=== PATIENT | female | born 1955 | race Caucasian/White ===

== ENCOUNTER 2016-05-17 10:11 | Emergency (ER) | payer OTHER, MEDICARE | END 2016-05-17 11:15 | disposition left against medical advice (07) | LOC: UCCORT 10:11 | DX: M54.9 Dorsalgia, unspecified (principal); R05 Cough; Z53.21 Procedure and treatment not carried out due to patient leaving prior to being seen by health care provider ==

== ENCOUNTER 2016-05-17 12:48 | Emergency (ER) | payer OTHER, MEDICARE ==
--- NOTE | 2016-05-17 13:48 | ED ---
Respiratory - HPI Summary HPI Summary: She has had a cough for about 4 days. she has been on antibiotics and prednisone for two days. the cough has improved. no risk factors for PE. she denies sob or calf symptoms of any kind. she presents mainly because of this new pain in the right flank. No urinary symptoms. - History of Current Complaint Chief Complaint: UCRespiratory Stated Complaint: BACK PAIN,COUGH Time Seen by Provider: 05/17/16 13:23 Hx Obtained From: Patient Onset/Duration: Sudden Onset Timing: Constant Initial Severity: Moderate Current Severity: Moderate Character: Cough (Nonproductive) Sputum Amount: Scant Aggravating Factor(s): Deep Breaths - Allergy/Home Medications Allergies/Adverse Reactions: Allergies Allergy/AdvReac Type Severity Reaction Status Date / Time Citalopram [From Celexa] Allergy Severe Anaphylatic Verified 05/17/16 13:19 Shock Moxifloxacin [From Avelox] Allergy Severe Anaphylatic Verified 05/17/16 13:19 Shock Home Medications: Home Medications Beclomethasone Dipropionate [Qvar] 2 puff INH QPM 05/17/16 [History Confirmed ] Fluticasone NASAL SPRAY 50MCG* [Flonase NASAL SPRAY 50MCG*] 1 spray BOTH NARES BID 05/17/16 [History Confirmed 05/17/16] predniSONE TAB* [Deltasone TAB*] 40 mg PO SEE INSTRUCTIONS 05/17/16 [History Confirmed 05/17/16] PMH/Surg Hx/FS Hx/Imm Hx Endocrine/Hematology History: Denies: Hx Diabetes, Hx Systemic Lupus Erythematosus, Hx Thyroid Disease Cardiovascular History: Denies: Hx Congestive Heart Failure, Hx Deep Vein Thrombosis, Hx Hypertension , Hx Myocardial Infarction, Hx Pacemaker/ICD Respiratory History: Reports: Hx Asthma, Hx Chronic Obstructive Pulmonary Disease (COPD) Denies: Hx Lung Cancer, Hx Pneumonia, Hx Pulmonary Embolism GI History: Denies: Hx Gall Bladder Disease, Hx Gastrointestinal Bleed, Hx Ulcer, Hx Urosepsis History: Denies: Hx Kidney Stones, Hx Renal Disease Musculoskeletal History: Denies: Hx Rheumatoid Arthritis Neurological History: Denies: Hx Dementia, Hx Migraine, Hx Seizures, Hx Transient Ischemic Attacks (TIA) Psychiatric History: Reports: Hx Anxiety Denies: Hx Depression, Hx Schizophrenia, Hx Bipolar Disorder - Cancer History Cancer Type, Location and Year: skin - Surgical History Surgery Procedure, Year, and Place: skin cancer removed September 2012 Infectious Disease History: No Infectious Disease History: Denies: Hx Hepatitis, Hx Human Immunodeficiency Virus (HIV), Traveled Outside the [place] in Last 30 Days - Family History Known Family History: Positive: Respiratory Disease Negative: Cardiac Disease, Hypertension, Renal Disease - Social History Alcohol Use: None Substance Use Type: Reports: None Smoking Status (MU): Light Every Day Tobacco Smoker Type: Cigarettes Amount Used/How Often: 6 cigarettes daily Length of Time of Smoking/Using Tobacco: 41 Years Have You Smoked in the Last Year: Yes Review of Systems All Other Systems Reviewed And Are Negative: Yes Physical Exam Triage Information Reviewed: Yes Vital Signs On Initial Exam: Initial Vitals Temp Pulse Resp BP Pulse Ox 98.2 F 106 24 112/50 96 05/17/16 13:10 05/17/16 13:10 05/17/16 13:10 05/17/16 13:10 05/17/16 13:10 Vital Signs Reviewed: Yes Appearance: Positive: Well-Appearing, No Pain Distress, Well-Nourished. Negative: Ill-Appearing, Pain Distress Skin: Positive: Warm Head/Face: Positive: Normal Head/Face Inspection Eyes: Positive: Normal ENT: Positive: Normal ENT inspection, Hearing grossly normal, Pharynx normal, TMs normal. Negative: Pharyngeal erythema, Nasal congestion, Nasal drainage, TM bulging, TM dull, TM red, Tonsillar swelling, Tonsillar exudate, Trismus, Muffled/hoarse voice Neck: Positive: Supple, Nontender, No Lymphadenopathy. Negative: Nuchal Rigidity, Tenderness @, Enlarged Nodes @ Respiratory/Lung Sounds: Positive: Clear to Auscultation, Breath Sounds Present , Decreased Breath Sounds. Negative: Rales, Rhonchi, Subcutaneous Emphysema, Stridor, Tracheal Deviation, Wheezes, Unable to speak in full sentences, Fatigue - she is breathing and talking comfortably but has obvious pain with deep inspiration. there is tenderness distinctly along the ribs of the right flank. no cvat. Cardiovascular: Positive: Normal, RRR, Pulses are Symmetrical in both Upper and Lower Extremities. Negative: Leg Edema Left, Leg Edema Right Abdomen Description: Positive: Nontender, No Organomegaly. Negative: Distended , Guarding Musculoskeletal: Positive: Normal, Strength/ROM Intact. Negative: Limited @, Pain @, Silvana Sign Left, Silvana Sign Right, Edema Left, Edema Right Neurological: Positive: Normal, Sensory/Motor Intact, Alert, Oriented to Person Place, Time Psychiatric: Positive: Normal Diagnostics - Vital Signs Vital Signs Temp Pulse Resp BP Pulse Ox 05/17/16 13:10 98.2 F 106 24 112/50 96 - Laboratory Lab Statement: Any lab studies that have been ordered have been reviewed, and results considered in the medical decision making process. Disposition - Course Course Of Treatment: PE is not likely given no risk factors except for mild smoking and there is no sob or tachycardia or signs of dvt. x ray clear of pneumothorax, pneumonia, pleural effusion. this is most c/w pleurisy or costochondritis. f/u with pcp and return to ed for any worsening. - Diagnoses Provider Diagnoses: Costochondral pain Discharge - Discharge Plan Condition: Good Disposition: HOME Prescriptions: traMADol TAB* [Ultram*] 50 mg PO Q12H PRN #12 tab MDD 2 PRN Reason: Pain Patient Education Materials: Chest Wall Pain (ED) Referrals: Rayo Power DO [Primary Care Provider] - 3 Days
[2016-05-17] MEDS ORDERED: Ketorolac INJ* 30 MG/ML 1 ML VIAL IV PUSH ONE (13:57)
--- NOTE | 2016-05-17 13:59 | RAD ---
Indication: Cough with chest pain. 2 views of the chest including dual energy PA views demonstrates no mediastinal shift. Heart is of normal size and configuration. Hyperinflated lung mcconnell are noted. No pneumonia, pleural fluid or pneumothorax is noted. No changes noted since February 03, 2015. IMPRESSION: No active cardiopulmonary disease is noted.
[2016-05-17] MEDS ORDERED: Ketorolac INJ* 30 MG/ML 1 ML VIAL IM ONE (14:01)
[2016-05-17 14:28] VITALS: BP 117/65
== END 2016-05-17 14:31 | disposition home or self-care (01) ==
LOC: UCCORT 12:48
DX: R07.1 Chest pain on breathing (principal); Z88.1 Allergy status to other antibiotic agents; Z88.8 Allergy status to other drugs, medicaments and biological substances; F17.210 Nicotine dependence, cigarettes, uncomplicated
CPT/HCPCS: 71020; 96372; 99212; G0463; J1885

== ENCOUNTER 2016-08-03 08:28 | Emergency (ER) | payer OTHER, MEDICARE ==
[2016-08-03 08:40] VITALS: BP 113/45
--- NOTE | 2016-08-03 09:13 | UC ---
Respiratory Complaint HPI - HPI Summary HPI Summary: c/o sinus congestion, wheezing at night, occasional productive cough with yellow secretions that started 2 weeks ago. Has an appt with PCP on . No fevers, + right cheek pressure. + h/o COPD and uses steroid inhaleer and qvar daily. last alb neb was 2 nights ago. - History of Current Complaint Chief Complaint: UCRespiratory Stated Complaint: COUGH,SINUSES Time Seen by Provider: 08/03/16 08:36 Hx Last Menstrual Period: n/a - Allergies/Home Medications Allergies/Adverse Reactions: Allergies Allergy/AdvReac Type Severity Reaction Status Date / Time Citalopram [From Celexa] Allergy Severe Anaphylatic Verified 08/03/16 08:33 Shock Moxifloxacin [From Avelox] Allergy Severe Anaphylatic Verified 08/03/16 08:33 Shock PMH/Surg Hx/FS Hx/Imm Hx Previously Healthy: Yes Endocrine History Of: Denies: Diabetes, Thyroid Disease, Hyperthyroidism, Hypothyroidism, Dyslipidemia Cardiovascular History Of: Denies: Cardiac Disorders, Hypertension, Pacemaker/ICD, Myocardial Infarction , Congestive Heart Failure, Atrial Fibrillation, Deep Vein Thrombosis, Bleeding Disorders Respiratory History Of: Reports: COPD, Asthma, Bronchitis Denies: Pneumonia, Pulmonary Embolism GI/ History Of: Denies: Gastroesophageal Reflux, Ulcer, Gastrointestinal Bleed, Gall Bladder Disease, Kidney Stones, Diverticulitis, Renal Disease, Urosepsis Neurological History Of: Denies: TIA, CVA, Dementia, Seizures, Migraine Psychological History Of: Reports: Anxiety Denies: Depression, Bipolar Disorder, Schizophrenia, Post Traumatic Stress Disorder Cancer History Of: Denies: Lung Cancer, Colorectal Cancer, Breast Cancer, Prostate Cancer, Cervical Cancer Other History Of: Negative For: HIV, Hepatitis B, Hepatitis C - Surgical History Surgical History: Yes Surgery Procedure, Year, and Place: skin cancer removed September 2012 - Family History Known Family History: Positive: Respiratory Disease Negative: Cardiac Disease, Hypertension, Renal Disease - Social History Alcohol Use: None Substance Use Type: None Smoking Status (MU): Heavy Every Day Tobacco Smoker Type: Cigarettes Amount Used/How Often: 10-20 cigarettes daily Length of Time of Smoking/Using Tobacco: 41 Years Have You Smoked in the Last Year: Yes When Did the Patient Quit Smoking/Using Tobacco: quit on may Household Exposure Type: Cigarettes - Immunization History Most Recent Influenza Vaccination: 4226-8153 Review of Systems Constitutional: Fatigue Skin: Negative Eyes: Negative ENT: Sore Throat, Nasal Discharge Respiratory: Cough Cardiovascular: Negative Gastrointestinal: Negative Genitourinary: Negative Motor: Negative Neurovascular: Negative Musculoskeletal: Negative Neurological: Negative Psychological: Negative All Other Systems Reviewed And Are Negative: Yes Physical Exam Triage Information Reviewed: Yes Appearance: Well-Appearing, No Pain Distress, Well-Nourished Vital Signs: Initial Vital Signs Temp 98.4 F 08/03/16 08:36 Pulse 92 08/03/16 08:36 Resp 18 08/03/16 08:36 BP 113/45 08/03/16 08:36 Pulse Ox 95 08/03/16 08:36 Eye Exam: Normal ENT: Positive: Pharyngeal erythema - no exudate, + PND, no swelling., TMs normal. Negative: Tonsillar swelling, Tonsillar exudate, Muffled/hoarse voice Dental Exam: Normal Neck exam: Normal Neck: Positive: Supple, Nontender, No Lymphadenopathy Respiratory: Positive: Chest non-tender, No respiratory distress, No accessory muscle use, Decreased breath sounds. Negative: Crackles, Rhonchi, Stridor, Wheezing Cardiovascular Exam: Normal Cardiovascular: Positive: RRR, No Murmur, Pulses Normal Abdomen Description: Positive: Nontender, Soft Musculoskeletal Exam: Normal Neurological Exam: Normal Psychological Exam: Normal Skin Exam: Normal UC Diagnostic Evaluation - Laboratory O2 Sat by Pulse Oximetry: 95 Respiratory Course/Dx - Course Course Of Treatment: She states that she feels she needs prednisone. She gets a 40mg starting taper usually. We discusse risks of prednisone including but not limited to anxiety, agitation, insomnia, GI upset, elevated blood pressures and blood sugar readings, adrenal crisis and avascular necrosis of the hip. [place] to use the lowest dose possible to treat the sx if it is necessary at all. She feels that she needs it. She uses alb neb sporadically, last 2 days ago. I advised her to use the neb Q 4-6 hrs for the wheezing and it is better to use this than prednisone for wheezing. Adv stronlgy to stop smoking. - Differential Dx/Diagnosis Differential Diagnosis/HQI/PQRI: Bronchitis, Lower Resp Infection, Sinusitis Provider Diagnoses: Sinusitis, bronchitis, copd. Discharge - Discharge Plan Condition: Stable Disposition: HOME Prescriptions: Amoxicillin/Clavulanate TAB* [Augmentin TAB 875*] 875 mg PO BID #20 tab Methylprednisolone [Medrol Dosepak 4 MG*] 4 mg PO DAILY #1 wei Patient Education Materials: Acute Bronchitis (ED), Sinusitis (ED) Referrals: Rayo Power DO [Primary Care Provider] - 3 Days Additional Instructions: Make sure to take a probiotic daily while you are on antibiotics. Increase fluids and rest.
== END 2016-08-03 09:33 | disposition home or self-care (01) ==
LOC: UCCORT 08:28
DX: J32.9 Chronic sinusitis, unspecified (principal); J44.9 Chronic obstructive pulmonary disease, unspecified; J20.9 Acute bronchitis, unspecified; F41.9 Anxiety disorder, unspecified; Z87.891 Personal history of nicotine dependence
CPT/HCPCS: 99212; G0463

== ENCOUNTER 2016-12-07 13:29 | Emergency (ER) | payer OTHER, MEDICARE | END 2016-12-07 13:36 | disposition left against medical advice (07) | LOC: UCCORT 13:29 | DX: J34.9 Unspecified disorder of nose and nasal sinuses (principal); R05 Cough; R09.81 Nasal congestion; Z53.20 Procedure and treatment not carried out because of patient's decision for unspecified reasons ==

== ENCOUNTER 2016-12-13 13:12 | Emergency (ER) | payer OTHER, MEDICARE ==
[2016-12-13 14:35] VITALS: BP 113/60
--- NOTE | 2016-12-13 14:43 | UC ---
Respiratory Complaint HPI - HPI Summary HPI Summary: 61 YEAR FEMALE PRESENTS WITH COMPLAINS OF COUGH AND CHEST CONGESTION. - History of Current Complaint Chief Complaint: UCRespiratory Stated Complaint: COUGH,CHEST CONGESTION Time Seen by Provider: 12/13/16 14:41 Hx Obtained From: Patient Hx Last Menstrual Period: n/a Onset/Duration: Sudden Onset Timing: Constant Severity Initially: Moderate Severity Currently: Moderate - Allergies/Home Medications Allergies/Adverse Reactions: Allergies Allergy/AdvReac Type Severity Reaction Status Date / Time Citalopram [From Celexa] Allergy Severe Anaphylatic Verified 12/13/16 14:28 Shock Moxifloxacin [From Avelox] Allergy Severe Anaphylatic Verified 12/13/16 14:28 Shock Home Medications: Home Medications Albuterol/Ipratropium RESP(NF) [Combivent Respimat (NF)] 1 inh IN Q4H PRN [History Confirmed 12/13/16] Fluticasone/Vilanterol MDI(NF) [Breo Ellipta MDI 100/25(NF)] 1 puff INH DAILY [History Confirmed 12/13/16] Ibuprofen TAB* [Advil TAB*] 600 mg PO Q8H PRN 12/13/16 [History Confirmed ] predniSONE TAB* [Deltasone TAB*] 60 mg PO DAILY 12/13/16 [History Confirmed ] PMH/Surg Hx/FS Hx/Imm Hx Previously Healthy: Yes Other History Of: Negative For: HIV, Hepatitis B, Hepatitis C - Surgical History Surgical History: Yes Surgery Procedure, Year, and Place: skin cancer removed September 2012 - Family History Known Family History: Positive: Respiratory Disease Negative: Cardiac Disease, Hypertension, Renal Disease - Social History Alcohol Use: None Substance Use Type: None Smoking Status (MU): Former Smoker Type: Cigarettes Amount Used/How Often: 10-20 cigarettes daily Length of Time of Smoking/Using Tobacco: 41 Years Have You Smoked in the Last Year: Yes When Did the Patient Quit Smoking/Using Tobacco: quit October 2016 Household Exposure Type: Cigarettes - Immunization History Most Recent Influenza Vaccination: [id number] Review of Systems Constitutional: Negative Skin: Negative Eyes: Negative ENT: Sore Throat, Sinus Congestion, Sinus Pain/Tenderness Respiratory: Cough Cardiovascular: Negative Gastrointestinal: Negative Genitourinary: Negative Motor: Negative Neurovascular: Negative Musculoskeletal: Negative Neurological: Negative Psychological: Negative All Other Systems Reviewed And Are Negative: Yes Physical Exam Triage Information Reviewed: Yes Vital Signs: Initial Vital Signs Temp 36.9 C 12/13/16 14:30 Pulse 77 12/13/16 14:30 Resp 20 12/13/16 14:30 BP 113/60 12/13/16 14:30 Pulse Ox 96 12/13/16 14:30 Eye Exam: Normal ENT Exam: Normal Dental Exam: Normal Neck exam: Normal Neck: Positive: 1 Respiratory: Positive: Respiratory distress, Wheezing Cardiovascular Exam: Normal Abdominal Exam: Normal Musculoskeletal Exam: Normal Neurological Exam: Normal Psychological Exam: Normal Skin Exam: Normal UC Diagnostic Evaluation - Laboratory O2 Sat by Pulse Oximetry: 96 Respiratory Course/Dx - Differential Dx/Diagnosis Provider Diagnoses: COUGH. COPD EXACERBATION Discharge - Discharge Plan Condition: Stable Disposition: HOME Prescriptions: Amoxicillin/Clavulanate TAB* [Augmentin TAB 875*] 875 mg PO BID #20 tab guaiFENesin/CODIEN 100MG-10MG* [Robitussin AC 100Mg-10Mg*] 5 ml PO Q8H PRN #120 ml MDD 15 ml PRN Reason: Craving Patient Education Materials: COPD (Chronic Obstructive Pulmonary Disease) (ED) Referrals: Rayo Power DO [Primary Care Provider] -
== END 2016-12-13 15:00 | disposition home or self-care (01) ==
LOC: UCCORT 13:12
DX: J44.1 Chronic obstructive pulmonary disease with (acute) exacerbation (principal); R05 Cough; Z88.8 Allergy status to other drugs, medicaments and biological substances; Z87.891 Personal history of nicotine dependence
CPT/HCPCS: 99212; G0463

== ENCOUNTER 2017-03-24 09:12 | Emergency (ER) | payer OTHER, MEDICARE ==
[2017-03-24 10:08] VITALS: BP 121/75
--- NOTE | 2017-03-27 18:27 | UC ---
Throat Pain/Nasal Zackary HPI - HPI Summary HPI Summary: 61 year old female presents with complains of sinus congestion and cough. - History of Current Complaint Chief Complaint: UCRespiratory Stated Complaint: UPPER RESP,ACHES,FEVER Time Seen by Provider: 03/24/17 09:47 Hx Obtained From: Patient Hx Last Menstrual Period: n/a Onset/Duration: Sudden Onset Pain Intensity: 7 Pain Scale Used: 0-10 Numeric Cough: Nonproductive Associated Signs & Symptoms: Positive: Dysphagia - Allergies/Home Medications Allergies/Adverse Reactions: Allergies Allergy/AdvReac Type Severity Reaction Status Date / Time Citalopram [From Celexa] Allergy Severe Anaphylatic Verified 03/24/17 10:08 Shock Moxifloxacin [From Avelox] Allergy Severe Anaphylatic Verified 03/24/17 10:08 Shock Home Medications: Home Medications Acetaminophen [Acetaminophen Extra Stren] 1,000 mg PO PRN 03/24/17 [History] Amoxicillin/Clavulanate TAB* [Augmentin TAB 875*] 875 mg PO BID 03/24/17 [ History Confirmed 03/24/17] Tiotropium CAP.INH* [Spiriva CAP.INH*] 1 cap.inh INH DAILY 03/24/17 [History Confirmed 03/24/17] PMH/Surg Hx/FS Hx/Imm Hx Previously Healthy: Yes Other History Of: Negative For: HIV, Hepatitis B, Hepatitis C - Surgical History Surgical History: Yes Surgery Procedure, Year, and Place: skin cancer removed September 2012. x1 - Family History Known Family History: Positive: Respiratory Disease Negative: Cardiac Disease, Hypertension, Renal Disease - Social History Alcohol Use: None Substance Use Type: None Smoking Status (MU): Former Smoker Type: Cigarettes Amount Used/How Often: 10-20 cigarettes daily Length of Time of Smoking/Using Tobacco: 41 Years Have You Smoked in the Last Year: Yes When Did the Patient Quit Smoking/Using Tobacco: quit October 2016 Household Exposure Type: Cigarettes - Immunization History Most Recent Influenza Vaccination: 11/2016 Review of Systems Constitutional: Negative Skin: Negative Eyes: Negative ENT: Sore Throat, Nasal Discharge, Sinus Congestion, Sinus Pain/Tenderness Respiratory: Negative Cardiovascular: Negative Gastrointestinal: Negative Genitourinary: Negative Motor: Negative Neurovascular: Negative Musculoskeletal: Negative Neurological: Negative Psychological: Negative All Other Systems Reviewed And Are Negative: Yes Physical Exam Triage Information Reviewed: Yes Vital Signs: Initial Vital Signs Temp 38.3 C 03/24/17 10:02 Pulse 99 03/24/17 10:02 Resp 16 03/24/17 10:02 BP 121/75 03/24/17 10:02 Pulse Ox 94 03/24/17 10:02 Vital Signs Reviewed: Yes Eye Exam: Normal ENT: Positive: Pharyngeal erythema, Nasal congestion, Nasal drainage, Sinus tenderness Dental Exam: Normal Neck exam: Normal Neck: Positive: 1 Respiratory Exam: Normal Cardiovascular Exam: Normal Abdominal Exam: Normal Musculoskeletal Exam: Normal Neurological Exam: Normal Psychological Exam: Normal Skin Exam: Normal Throat Pain/Nasal Course/Dx - Differential Dx/Diagnosis Provider Diagnoses: sinusitis Discharge - Discharge Plan Condition: Stable Disposition: HOME Prescriptions: Azithromyxin CALLIE (NF) [Z-Callie (Zithromax) 250 mg tabs #6] 2 tab PO .TODAY, THEN 1 DAILY #6 tab Guaifenesin-Codeine [Cheratussin AC] 1 teasp PO Q8H PRN #120 ml MDD 15 ml PRN Reason: Cough LoraTADine TAB(NF) [Claritin 10 MG TAB(NF)] 10 mg PO DAILY #30 tab predniSONE TAB* [Deltasone TAB*] 40 mg PO DAILY #10 tab Patient Education Materials: Sinusitis (ED) Referrals: Rayo Power DO [Primary Care Provider] -
== END 2017-03-24 10:39 | disposition home or self-care (01) ==
LOC: UCCORT 09:12
DX: J32.9 Chronic sinusitis, unspecified (principal); R05 Cough; J02.9 Acute pharyngitis, unspecified; Z87.891 Personal history of nicotine dependence
CPT/HCPCS: 87502; 99212; G0463

== ENCOUNTER 2017-03-28 10:23 | Emergency (ER) | payer OTHER, MEDICARE ==
[2017-03-28 12:34] VITALS: BP 128/68
[2017-03-28] MEDS ORDERED: Albuterol 2.5 MG/3 ML NEB.SOL* (0.083%) INH ONE (13:12)
[2017-03-28] MEDS ORDERED: Ipratropium 0.5MG/2.5ML NEB* 0.5 MG/2.5 ML NEB.SOLN INH ONE (13:13)
--- NOTE | 2017-03-28 13:22 | RAD ---
Indication: Cough, shortness of breath. 2 views of the chest including dual energy PA views demonstrate no mediastinal shift. Heart is of normal size and configuration. No pleural fluid, pneumonia or pneumothorax is identified. IMPRESSION: No active disease is noted. No changes noted since May 17, 2016.
--- NOTE | 2017-03-28 13:30 | UC ---
Respiratory Complaint HPI - HPI Summary HPI Summary: Pt c/o cough, chest congestion, wheezing, SOB with exertion. Pt was seen here on 03/25/17 and given z-pac, codeine cough syrup and prednisone. Pt states no improvement. Pt reports that only Doxycycline works for her. - History of Current Complaint Chief Complaint: UCRespiratory Stated Complaint: CONGESTION,HEADACHE Time Seen by Provider: 03/28/17 12:31 Hx Obtained From: Patient Hx Last Menstrual Period: n/a ?: No Onset/Duration: Gradual Onset, Lasting Days, Still Present, Worse Since - onset Timing: Constant Severity Initially: Mild Severity Currently: Moderate Character: Cough: Nonproductive Aggravating Factors: Exertion, Deep Breaths, Recumbent Position Alleviating Factors: Bronchodilator Associated Signs And Symptoms: Positive: Chills, URI, Nasal Congestion - Risk Factors Pulmonary Embolism Risk Factors: Smoking - recently quit Cardiac Risk Factors: Smoking Tuberculosis Risk Factors: Smoking - Allergies/Home Medications Allergies/Adverse Reactions: Allergies Allergy/AdvReac Type Severity Reaction Status Date / Time Citalopram [From Celexa] Allergy Severe Anaphylatic Verified 03/28/17 12:34 Shock Moxifloxacin [From Avelox] Allergy Severe Anaphylatic Verified 03/28/17 12:34 Shock PMH/Surg Hx/FS Hx/Imm Hx Previously Healthy: Yes Other History Of: Negative For: HIV, Hepatitis B, Hepatitis C - Surgical History Surgical History: Yes Surgery Procedure, Year, and Place: skin cancer removed September 2012. x1 - Family History Known Family History: Positive: Respiratory Disease Negative: Cardiac Disease, Hypertension, Renal Disease - Social History Occupation: Employed Full-time Lives: With Family Alcohol Use: None Substance Use Type: None Smoking Status (MU): Former Smoker Type: Cigarettes Amount Used/How Often: 10-20 cigarettes daily Length of Time of Smoking/Using Tobacco: 41 Years Have You Smoked in the Last Year: Yes When Did the Patient Quit Smoking/Using Tobacco: quit October 2016 Household Exposure Type: Cigarettes - Immunization History Most Recent Influenza Vaccination: 11/2016 Review of Systems Constitutional: Chills, Fatigue Skin: Negative Eyes: Negative ENT: Sinus Congestion, Other - nasal congestion Respiratory: Shortness Of Breath - with exertion, Cough Cardiovascular: Negative Gastrointestinal: Negative Genitourinary: Negative Motor: Negative Neurovascular: Negative Musculoskeletal: Negative Neurological: Negative Psychological: Negative Is Patient Immunocompromised?: No All Other Systems Reviewed And Are Negative: Yes Physical Exam Triage Information Reviewed: Yes Appearance: Ill-Appearing Vital Signs: Initial Vital Signs Temp 98.7 F 03/28/17 12:29 Pulse 75 03/28/17 12:29 Resp 18 03/28/17 12:29 BP 128/68 03/28/17 12:29 Pulse Ox 94 03/28/17 12:29 Vital Signs Reviewed: Yes Eye Exam: Normal ENT Exam: Other ENT: Positive: Nasal congestion Dental Exam: Normal Neck exam: Normal Respiratory Exam: Other Respiratory: Positive: Decreased breath sounds - bilateral bases Cardiovascular Exam: Normal Musculoskeletal Exam: Normal Neurological Exam: Normal Psychological Exam: Normal Skin Exam: Normal UC Diagnostic Evaluation - Laboratory O2 Sat by Pulse Oximetry: 94 Respiratory Course/Dx - Differential Dx/Diagnosis Differential Diagnosis/HQI/PQRI: Bronchitis, Exacerbation Of COPD, Pulmonary Embolism, Other - URI Provider Diagnoses: Bronchitis Discharge - Discharge Plan Condition: Stable Disposition: HOME Prescriptions: Benzonatate CAP* [Tessalon 100 MG CAP*] 100 mg PO Q8H PRN #21 cap PRN Reason: Cough DOXYcycline CAP(*) [DOXYcycline 100MG CAP(*)] 100 mg PO BID #20 cap Ipratropium 0.5MG/2.5ML NEB* [Atrovent 0.5 MG NEB.NICKY*] 0.5 mg INH Q6H PRN #1 box PRN Reason: Sob/Wheezing methylPREDNISolone TAB* [Medrol TAB*] 4 - 8 mg PO .SEE CALLIE #1 callie Patient Education Materials: Acute Bronchitis (ED) Referrals: No Primary Care Phys,NOPCP [Primary Care Provider] - If Needed Additional Instructions: Please follow up with your PCP or return to clinic as needed.
== END 2017-03-28 13:56 | disposition home or self-care (01) ==
LOC: UCCORT 10:23
DX: J40 Bronchitis, not specified as acute or chronic (principal); Z87.891 Personal history of nicotine dependence; Z88.3 Allergy status to other anti-infective agents; Z85.828 Personal history of other malignant neoplasm of skin
CPT/HCPCS: 71046; 99212; G0463; J7644

== ENCOUNTER 2017-06-09 14:07 | Emergency (ER) | payer OTHER, MEDICARE ==
[2017-06-09 15:03] VITALS: BP 138/54
--- NOTE | 2017-06-09 15:52 | UC ---
General HPI - HPI Summary HPI Summary: pt is c/o "pain in my chest between my boobs" for 2 months. she describes it as a pressure. she notes it is worse upon waking and improves throughout the day. she saw her pcp who tx her with IB x 2 weeks. she noted some relief from the IB initially but none now. she denies any heartburn/acid in throat. discomfort is not exertional. no sweating or nausea. no acute sob. pt wears cpap. she did f/u Dr Friend and the cpap pressure was reduced without change so now they are going to repeat a sleep study and prescribe bipap. pt stopped her cpap 5 days ago with no relief from the pressure. her last CT and CXR were 12/31 when she had pneumonia. denies hx cardiac disease and premature cad in family. no associated back pain. no pain/swelling to legs/calfs. no hx DVT. - History of Current Complaint Hx Last Menstrual Period: n/a Timing: Constant Pain Intensity: 7 Associated Signs & Symptoms: Positive: Chest Pain. Negative: Diaphoresis, Edema , Fever, Palpitations, SOB <Alyse Yip - Last Filed: 06/09/17 16:39> <Cristiane Palacios - Last Filed: 06/09/17 17:10> - History of Current Complaint Chief Complaint: UCRespiratory Stated Complaint: CHEST CONGESTION Time Seen by Provider: 06/09/17 15:02 - Allergy/Home Medications Allergies/Adverse Reactions: Allergies Allergy/AdvReac Type Severity Reaction Status Date / Time ceftriaxone [From Rocephin] Allergy Severe Abdominal Verified 06/09/17 15:07 Pain citalopram [From Celexa] Allergy Severe Anaphylatic Verified 06/09/17 15:06 Shock Iodinated Contrast- Oral and Allergy Severe Anaphylatic Verified 06/09/17 15:07 IV Dye Shock moxifloxacin [From Avelox] Allergy Severe Anaphylatic Verified 06/09/17 15:08 Shock Home Medications: Home Medications Fluticasone/Vilanterol [Breo Ellipta 200-25 Mcg INH] 1 each IH 06/09/17 [History ] PMH/Surg Hx/FS Hx/Imm Hx - Additional Past Medical History Additional PMH: LUIS Endocrine History: Dyslipidemia - tx diet Respiratory History: COPD, Pneumonia Other History Of: Negative For: HIV, Hepatitis B, Hepatitis C - Surgical History Surgical History: Yes Surgery Procedure, Year, and Place: skin cancer removed September 2012. x1 - Family History Known Family History: Positive: Respiratory Disease Negative: Cardiac Disease, Hypertension, Renal Disease - Social History Alcohol Use: None Substance Use Type: None Smoking Status (MU): Former Smoker Type: Cigarettes Amount Used/How Often: 10-20 cigarettes daily Length of Time of Smoking/Using Tobacco: 41 Years Have You Smoked in the Last Year: Yes When Did the Patient Quit Smoking/Using Tobacco: quit October 2016 Household Exposure Type: Cigarettes - Immunization History Most Recent Influenza Vaccination: 11/2016 <Alyse Yip - Last Filed: 06/09/17 16:39> Review of Systems Constitutional: Negative Skin: Negative Eyes: Negative ENT: Negative Respiratory: Negative Cardiovascular: Chest Pain Gastrointestinal: Negative Genitourinary: Negative Motor: Negative Neurovascular: Negative Musculoskeletal: Negative Neurological: Negative Psychological: Negative Is Patient Immunocompromised?: No All Other Systems Reviewed And Are Negative: Yes <Alyse Yip - Last Filed: 06/09/17 16:39> Physical Exam Triage Information Reviewed: Yes Appearance: Well-Appearing Vital Signs: Initial Vital Signs Temp 97.0 F 06/09/17 14:56 Pulse 88 06/09/17 14:56 Resp 20 06/09/17 14:56 BP 138/54 06/09/17 14:56 Pulse Ox 97 06/09/17 14:56 Vital Signs Reviewed: Yes Eye Exam: Normal ENT: Positive: Normal ENT inspection Neck: Positive: Supple, Nontender, No Lymphadenopathy Respiratory: Positive: Lungs clear, No respiratory distress, No accessory muscle use, Decreased breath sounds, Other: - Tender over central anterior chest but crepitation or instability. Cardiovascular: Positive: RRR, No Murmur, Pulses Normal - radial are equal and strong, Other: - no pedal edema, cords or calf tenderness. Abdomen Description: Positive: Nontender, No Organomegaly, Soft Bowel Sounds: Positive: Present Musculoskeletal: Positive: No Edema Neurological: Positive: Alert Psychological: Positive: Age Appropriate Behavior Skin Exam: Normal <Alyse Yip - Last Filed: 06/09/17 16:39> Vital Signs: Initial Vital Signs Temp 97.0 F 06/09/17 14:56 Pulse 88 06/09/17 14:56 Resp 20 06/09/17 14:56 BP 138/54 06/09/17 14:56 Pulse Ox 97 06/09/17 14:56 <Cristiane Palacios - Last Filed: 06/09/17 17:10> Diagnostics - Radiology No standard instances Xray Interpretation: No Acute Changes Radiology Interpretation Completed By: Radiologist - EKG Cardiac Rate: NL Cardiac Rhythm: Sinus: Normal Ectopy: PVCs - occasional ST Segment: Normal <YipAlyse hendrickson - Last Filed: 06/09/17 16:39> Course/Dx - Course Course Of Treatment: non toxic. not hypoxic or tachycardic and no calf pain/ swelling thus no concern for PE. ekg=unremarkable. not exertional, no diaphoresis and symptoms contant x 2 months thus acs unlikely. nothing to suggest aortic dissection. cxr=unremarkable. will tx with PPI to address possible reflux, baby aspirin daily and refer to cardiology to ensure additional cardiac pathology is excluded. - Differential Dx - Multi-Symptom Provider Diagnoses: CHEST PAIN=UNCERTAIN CAUSE <YipAlyse - Last Filed: 06/09/17 16:39> Discharge - Sign-Out/Discharge Documenting (check all that apply): Discharge - Billing Disposition and Condition Condition: STABLE Disposition: HOME <YipAlyse - Last Filed: 06/09/17 16:39> - Billing Disposition and Condition Condition: STABLE Disposition: HOME <Cristiane Palacios - Last Filed: 06/09/17 17:10> - Discharge Plan Condition: Stable Disposition: HOME Prescriptions: Omeprazole CAP* [Prilosec CAP* 20 MG] 20 mg PO DAILY #14 cap. Patient Education Materials: Chest Pain (ED) Referrals: Jameson RAMIREZ,Selvin Hallman [Medical Doctor] - [facility] [Provider Group] - 1 Day (OK TO REQUEST [place] OFFICE) Additional Instructions: YOU MAY CALL [facility](DR RIOS) OR [facility] TOMORROW FOR FOLLOW UP-TAKE THE NEXT AVAILABLE APPOINTMENT. GO TO THE ER FOR ANY WORSENING OR CHANGES. START A BABY ASPIRIN DAILY. Attestation Statement User Type: Provider - I was available for consult. This patient was seen by the advanced practice provider. The patient was not seen by or examined by me. We did discuss this patients history, risk factors. I reviewed VS, EKG and CXR. Recommend pt see cardiology as outpt - pt with ongoing, constant sx x 2 months. It sx change in tempo, intensity recommend immediately to ED or call EMS. Pt given referral info cardiology. -Jhonatan <Cristiane Palacios - Last Filed: 06/09/17 17:10>
--- NOTE | 2017-06-09 16:16 | RAD ---
INDICATION: Central chest pain for 2 months. History of COPD. History of tobacco use. COMPARISON: March 28, 2017 TECHNIQUE: Dual energy PA and routine lateral views of the chest were obtained. REPORT: Elevated lung volumes and patchy rarefaction of the upper lung zone interstitial markings. No focal pulmonary lesion, compelling alveolar consolidation, pleural effusion, pneumothorax. The heart, pulmonary vasculature, and mediastinal contours are unremarkable. No suspicious osseous lesions evident. Thoracic degenerative spondylosis and degenerative arthropathy at the shoulders. IMPRESSION: Stigmata of obstructive lung disease. No acute pulmonary or cardiac process evident.
== END 2017-06-09 16:49 | disposition home or self-care (01) ==
LOC: UCCORT 14:07
DX: R07.9 Chest pain, unspecified (principal); Z88.8 Allergy status to other drugs, medicaments and biological substances; Z88.1 Allergy status to other antibiotic agents; Z91.041 Radiographic dye allergy status; Z87.891 Personal history of nicotine dependence
CPT/HCPCS: 71046; 93005; 99212; G0463

== ENCOUNTER 2017-07-28 18:09 | Emergency (ER) | payer OTHER, MEDICARE ==
[2017-07-28 20:20] VITALS: BP 123/58
--- NOTE | 2017-07-28 20:28 | UC ---
Throat Pain/Nasal Zackary HPI - HPI Summary HPI Summary: Pt with h/o COPD on symbicort, spirivia and albuterol No oxygen, oral steroid. Pt with 5 days of cough with yellow sputum, fatigue, tactile temp. little relief with meds. No cp, sob. Pt recently dx with bronchitis Pt's medications reviewed this visit - History of Current Complaint Chief Complaint: UCGeneralIllness Stated Complaint: COUGH, CONGESTION Time Seen by Provider: 07/28/17 20:27 Hx Obtained From: Patient Hx Last Menstrual Period: n/a Onset/Duration: Gradual Onset, Lasting Days Pain Intensity: 0 Cough: Nonproductive Associated Signs & Symptoms: Positive: Wheezing, Nasal Discharge - Allergies/Home Medications Allergies/Adverse Reactions: Allergies Allergy/AdvReac Type Severity Reaction Status Date / Time ceftriaxone [From Rocephin] Allergy Severe Abdominal Verified 07/28/17 20:20 Pain citalopram [From Celexa] Allergy Severe Anaphylatic Verified 07/28/17 20:20 Shock Iodinated Contrast- Oral and Allergy Severe Anaphylatic Verified 07/28/17 20:20 IV Dye Shock moxifloxacin [From Avelox] Allergy Severe Anaphylatic Verified 07/28/17 20:20 Shock Home Medications: Home Medications Albuterol HFA INHALER* [Ventolin HFA Inhaler*] 2 puff INH Q4H PRN 07/28/17 [ History Confirmed 07/28/17] Budesonide/Formote 160/4.5(NF) [Symbicort 160/4.5 (NF)] 2 puff INH BID 07/28/17 [History Confirmed 07/28/17] Fluticasone NASAL SPRAY 50MCG* [Flonase NASAL SPRAY 50MCG*] 1 spray BID [History Confirmed 07/28/17] Montelukast Sodium TAB* [Singulair TAB*] 10 mg PO BEDTIME 07/28/17 [History Confirmed 07/28/17] Roflumilast (NF) [Daliresp (NF)] 500 mcg PO DAILY 07/28/17 [History Confirmed ] PMH/Surg Hx/FS Hx/Imm Hx Previously Healthy: Yes Respiratory History: COPD, Bronchitis Other History Of: Negative For: HIV, Hepatitis B, Hepatitis C - Surgical History Surgical History: Yes Surgery Procedure, Year, and Place: skin cancer removed September 2012. x1 - Family History Known Family History: Positive: Respiratory Disease Negative: Cardiac Disease, Hypertension, Renal Disease - Social History Occupation: Unemployed Lives: With Family Alcohol Use: None Substance Use Type: None Smoking Status (MU): Former Smoker Type: Cigarettes Amount Used/How Often: 10-20 cigarettes daily Length of Time of Smoking/Using Tobacco: 41 Years Have You Smoked in the Last Year: Yes When Did the Patient Quit Smoking/Using Tobacco: quit October 2016 Household Exposure Type: Cigarettes - Immunization History Most Recent Influenza Vaccination: 11/2016 Review of Systems Constitutional: Fatigue ENT: Sinus Congestion Respiratory: Shortness Of Breath, Cough All Other Systems Reviewed And Are Negative: Yes Physical Exam Triage Information Reviewed: Yes Appearance: Well-Appearing, No Pain Distress, Well-Nourished Vital Signs: Initial Vital Signs Temp 98.7 F 07/28/17 20:15 Pulse 102 07/28/17 20:15 Resp 20 07/28/17 20:15 BP 123/58 07/28/17 20:15 Pulse Ox 95 07/28/17 20:15 Vital Signs Reviewed: Yes Eye Exam: Normal Eyes: Positive: Conjunctiva Clear ENT Exam: Normal ENT: Positive: Hearing grossly normal, Pharynx normal, TMs normal Neck exam: Normal Neck: Positive: Supple, Nontender Respiratory: Positive: Chest non-tender, No respiratory distress, No accessory muscle use, Wheezing Cardiovascular Exam: Normal Cardiovascular: Positive: RRR, No Murmur Abdominal Exam: Normal Abdomen Description: Positive: Nontender, No Organomegaly Bowel Sounds: Positive: Present Musculoskeletal Exam: Normal Neurological Exam: Normal Neurological: Positive: Alert Psychological Exam: Normal Skin Exam: Normal Re-Evaluation - Re-Evaluation First Eval Change: Improved - lung sounds improved following neb will rx prednisne, doxy pt for recheck this week strict return precaution Throat Pain/Nasal Course/Dx - Course Course Of Treatment: Pt witih progressive cough, wheeze and congestion. Pt sick contact. Pt with h/o copd. will give neb. pt refusing cxr - states had one last month. will reasses. secrtion precaution - Differential Dx/Diagnosis Provider Diagnoses: acute bronchitis Discharge - Sign-Out/Discharge Documenting (check all that apply): Discharge/Admit/Transfer - Discharge Plan Condition: Stable Disposition: HOME Prescriptions: DOXYcycline CAP(*) [DOXYcycline 100MG CAP(*)] 100 mg PO BID #14 cap predniSONE TAB* [Deltasone TAB*] 50 mg PO DAILY #4 tab Patient Education Materials: Acute Bronchitis (ED) Referrals: Donald Power [Primary Care Provider] - Additional Instructions: - Take antibiotics exactly as prescribed until gone -Use your albutero nebulize every 4 hours for the next 2 days - then as needed - take prednisone once daily as prescribed. It is recommended you hold your pulmicort and symbicort while taking Prednisone These infections are spread by oral secretions. Do not share eating or drinking utensils. Frequent hand washing is important. Clean items that may get your secretions on them such as cell phones, ipads, computer mouse, television remotes. Once you have been on antbiotics for 2 days, change your pillowcase and your toothbrush -Stay well hydrated - avoid excess caffeine and all alcohol - eat regular, healthy meals --Contact your doctor to arrange a follow-up appointment next week. Call your doctor, return here or go to the emergency department with any questions or concerns - Billing Disposition and Condition Condition: STABLE Disposition: HOME
[2017-07-28] MEDS ORDERED: Albuterol/Ipratropium NEB.SOL* Albuterol 2.5 MG/Ipratropium 0.5 MG 3 ML INH ONE (20:35)
[2017-07-28] MEDS ORDERED: DOXYcycline CAP(*) 100 MG PO ONE (21:04)
[2017-07-28] MEDS ORDERED: predniSONE TAB* 20 MG PO ONE (21:04)
== END 2017-07-28 21:24 | disposition home or self-care (01) ==
LOC: UCCORT 18:09
DX: R05 Cough (principal); R09.81 Nasal congestion; Z87.891 Personal history of nicotine dependence; Z85.828 Personal history of other malignant neoplasm of skin
CPT/HCPCS: 99213; A9270-GY; G0463; J7512

== ENCOUNTER 2017-08-01 14:28 | Emergency (ER) | payer OTHER, MEDICARE ==
[2017-08-01 15:41] VITALS: BP 132/62
--- NOTE | 2017-08-01 16:03 | ED ---
Respiratory - HPI Summary HPI Summary: 61 yr old female with the complaint of cough, sob, and pain in the left posterior chest. The patient has been ill for about four days. Was seen here in , put on doxy, steroids and nebs, and states she has gotten worse this week. Denies fever. She states she is very SOB with doing minimal activity. Pain in left posterior chest worse with coughing. - History of Current Complaint Chief Complaint: UCRespiratory Stated Complaint: RE-CHECK BRONCHITIS Time Seen by Provider: 08/01/17 15:48 Pain Intensity: 5 - Allergy/Home Medications Allergies/Adverse Reactions: Allergies Allergy/AdvReac Type Severity Reaction Status Date / Time citalopram [From Celexa] Allergy Severe Anaphylatic Verified 08/01/17 15:41 Shock Iodinated Contrast- Oral and Allergy Severe Anaphylatic Verified 08/01/17 15:41 IV Dye Shock moxifloxacin [From Avelox] Allergy Severe Anaphylatic Verified 08/01/17 15:41 Shock ceftriaxone [From Rocephin] AdvReac Severe Abdominal Verified 08/01/17 15:41 Pain PMH/Surg Hx/FS Hx/Imm Hx Endocrine/Hematology History: Denies: Hx Diabetes, Hx Systemic Lupus Erythematosus, Hx Thyroid Disease Cardiovascular History: Denies: Hx Congestive Heart Failure, Hx Deep Vein Thrombosis, Hx Hypertension , Hx Myocardial Infarction, Hx Pacemaker/ICD Respiratory History: Reports: Hx Asthma, Hx Chronic Obstructive Pulmonary Disease (COPD) Denies: Hx Lung Cancer, Hx Pneumonia, Hx Pulmonary Embolism GI History: Denies: Hx Gall Bladder Disease, Hx Gastrointestinal Bleed, Hx Ulcer, Hx Urosepsis History: Denies: Hx Kidney Stones, Hx Renal Disease Musculoskeletal History: Denies: Hx Rheumatoid Arthritis Neurological History: Denies: Hx Dementia, Hx Migraine, Hx Seizures, Hx Transient Ischemic Attacks (TIA) Psychiatric History: Reports: Hx Anxiety Denies: Hx Depression, Hx Schizophrenia, Hx Bipolar Disorder - Cancer History Cancer Type, Location and Year: skin - Surgical History Surgery Procedure, Year, and Place: skin cancer removed September 2012. x1 Infectious Disease History: No Infectious Disease History: Denies: Hx Hepatitis, Hx Human Immunodeficiency Virus (HIV), Traveled Outside the [place] in Last 30 Days - Family History Known Family History: Positive: Respiratory Disease Negative: Cardiac Disease, Hypertension, Renal Disease - Social History Alcohol Use: None Substance Use Type: Reports: None Smoking Status (MU): Former Smoker Type: Cigarettes Amount Used/How Often: 10-20 cigarettes daily Length of Time of Smoking/Using Tobacco: 41 Years Have You Smoked in the Last Year: Yes Review of Systems Constitutional: Negative Positive: Shortness Of Breath, Cough All Other Systems Reviewed And Are Negative: Yes Physical Exam Triage Information Reviewed: Yes Vital Signs On Initial Exam: Initial Vitals Temp Pulse Resp BP Pulse Ox 97.8 F 81 20 132/62 93 08/01/17 15:29 08/01/17 15:29 08/01/17 15:29 08/01/17 15:29 08/01/17 15:29 Vital Signs Reviewed: Yes Appearance: Positive: Well-Appearing, No Pain Distress Skin: Positive: Warm, Skin Color Reflects Adequate Perfusion Head/Face: Positive: Normal Head/Face Inspection Eyes: Positive: EOMI Neck: Positive: Supple, Nontender Respiratory/Lung Sounds: Positive: Clear to Auscultation, Breath Sounds Present Cardiovascular: Positive: RRR. Negative: Murmur Abdomen Description: Positive: Nontender Musculoskeletal: Positive: Strength/ROM Intact. Negative: Edema Left, Edema Right Neurological: Positive: Sensory/Motor Intact, Alert, Oriented to Person Place, Time, CN Intact II-III Psychiatric: Positive: Normal - [place] Coma Scale Best Eye Response: 4 - Spontaneous Best Motor Response: 6 - Obeys Commands Best Verbal Response: 5 - Oriented Coma Scale Total: 15 Diagnostics - Vital Signs Vital Signs Temp Pulse Resp BP Pulse Ox 08/01/17 15:29 97.8 F 81 20 132/62 93 - Laboratory Lab Statement: Any lab studies that have been ordered have been reviewed, and results considered in the medical decision making process. - Radiology chest xrays Xray Interpretation: Positive (See Comments) - hyperinflation Radiology Interpretation Completed By: Radiologist Disposition - Course Course Of Treatment: 61 yr old with posterior left chest pain, and SOB with no acute finding on chest xray. She feels she is much shorter of breath than usual and really not feeling well. She verbalized that she did not want to go to the hospital for further work up and wanted to see her PMD on Friday. I informed her she could have a PE, and that ambulance transport to ER for work up was necessary. She signed out AMA. She may go to [facility] on her own for further eval. - Diagnoses Provider Diagnoses: Shortness of breath, Pleuritic pain Discharge - Sign-Out/Discharge Documenting (check all that apply): Discharge/Admit/Transfer - Discharge Plan Condition: Stable Disposition: AGAINST MEDICAL ADVICE Referrals: Donald Power [Primary Care Provider] - - Billing Disposition and Condition Condition: STABLE Disposition: [facility]
--- NOTE | 2017-08-01 16:43 | RAD ---
INDICATION: Short of breath COMPARISON: June 09, 2017 TECHNIQUE: PA and lateral dual-energy views were obtained. FINDINGS: Bones/Soft Tissues: There are no acute bony findings. Cardiomediastinal: The cardiomediastinal silhouette is normal. Lungs: There are no infiltrates. There is hyperinflation. Pleura: There are no pleural effusions. Other: None IMPRESSION: HYPERINFLATION. NO FOCAL INFILTRATES.
== END 2017-08-01 17:06 | disposition left against medical advice (07) ==
LOC: UCCORT 14:28
DX: R06.02 Shortness of breath (principal); R07.81 Pleurodynia; R09.89 Other specified symptoms and signs involving the circulatory and respiratory systems; Z53.21 Procedure and treatment not carried out due to patient leaving prior to being seen by health care provider; Z87.891 Personal history of nicotine dependence; Z88.3 Allergy status to other anti-infective agents; Z91.041 Radiographic dye allergy status
CPT/HCPCS: 71046; 99212; G0463

== ENCOUNTER 2018-03-15 15:42 | Emergency (ER) | payer OTHER, MEDICARE ==
--- OUTSIDE RECORDS SUMMARY | 2018-03-15 16:29 | XMS REPORT ---
:1955 External Reference #:[id number] Author Organization [facility] Address [address], [address] [place] [address] Phone [phone] Care Team Providers Name Role Phone Damari Frost M.D. 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 Jannet, Rayo Adams D.Rossy. Primary Care Physician Unavailable Payers Type Date Identification Numbers Payment Provider Subscriber Commercial Policy Number: [id number] [facility] Julio Silva PayID: [id number] [address] [place] [address] Medicare Primary Policy Number: [id number] Medicare Clara Silva PayID: [id number] [address] [address] [place] [address] Problems Description No Information Family History Date Family Member(s) Problem(s) Comments Father Colon Cancer Mother Intracranial hemorrhage Mother due to Emphysema () Mother Asthma First Sister Bladder Cancer Social History Type Date Description Comments Marital Status Lives With Occupation Disabled Cigarette Use Former Cigarette Smoker 1 1/2 Packs Daily 30 PLUS YEARS ETOH Use Denies alcohol use Smoking Patient is a former smoker Recreational Drug Use Never Used Drugs Daily Caffeine Consumes on average 5 cups of regular coffee per day Allergies, Adverse Reactions, Alerts Date Description Reaction Status Severity Comments 12/26/2016 Zosyn active 12/26/2016 Celexa active 12/26/2016 Avelox active 12/26/2016 Levaquin active 12/26/2016 Contrast Dye active Medications Medication Date Status Form Strength Qnty SIG Indications Ordering Provider Amitriptyline 09/18 Active Tablets 25mg 30tab 1 tab by Ele s mouth every MD Ambrosio day every night Daliresp 06/18 Active Tablets 500mcg 30tab 1 by mouth J44.9 Anju s every day MD Ambrosio Proair HFA 01/03 Active Aerosol 108(90Bas 25.5g take 2 e) m puffs every MD Ambrosio mcg/Act 6 hours as needed for shortness of breath. Spiriva 01/03 Active Aerosol 2.5mcg/Ac 4unit Take 2 J44.9 Anjueti, Respima t s Puffs Once MD Ambrosio Daily. Albuterol Active Nebulizer 1.25mg/3M 270ml 1 vial Kheti, Sulfate /0000 L inhaled MD Ambrosio every 4 hours as needed for shortness of breath and or wheezing Xanax Active Tablets 0.5mg tid prn Unknown /0000 anxiety prn Symbicort Active Aerosol 160-4.5mc 2 puff Unknown /0000 g/Act twice a day Physical 06/23 Hx Ele, MD Ambrosio Omeprazole 04/10 Hx Capsules 40mg 30cap take [address] s tablet MD Ambrosio daily. Cimetidine 01/13 Hx Tablets 200mg 60tab 1 p bid [facility] s Peterson Juarez M.D. Breo Ellipta Hx Aerosol 100-25mcg 1mont take 1 puff Kheti, /0000 /Inh h once daily. MD Ambrosio rinse mouth with water after use. Xanax Hx Tablets 0.25mg 1 tab by Unknown /0000 mouth twice - a day as 06/18 needed 0.5mg Albuterol Hx Nebulizer (2.5mg/3M nebulized Unknown Sulfate /0000 L) 0.083% every 4 hours as needed Combivent Hx Aerosol 20-100mcg 1 Unknown Respimat /0000 /Act inhalation - four times 01/03 a day /2016 Montelukast Hx Tablets 10mg take 1 Unknown Sodium /0000 tablet daily. Vital Signs Date Vital Result Comment 02/23/2018 BP Systolic Sitting Left Arm 138 mmHg BP Diastolic Sitting Left Arm 88 mmHg Heart Rate 91 /min Respiratory Rate 18 /min Height 63 inches 5'3" Weight 181.00 lb BMI (Body Mass Index) 32.1 kg/m2 BSA (Body Surface Area) 1.85 m2 [place] body weight in kilograms 52 O2 % BldC Oximetry 93 % 09/18/2017 BP Systolic Sitting Left Arm 120 mmHg BP Diastolic Sitting Left Arm 60 mmHg Heart Rate 90 /min Respiratory Rate 18 /min Height 63 inches 5'3" Weight 175.00 lb BMI (Body Mass Index) 31.0 kg/m2 BSA (Body Surface Area) 1.83 m2 [place] body weight in kilograms 52 O2 % BldC Oximetry 97 % 06/18/2017 BP Systolic Sitting Left Arm 126 mmHg BP Diastolic Sitting Left Arm 88 mmHg Heart Rate 83 /min Respiratory Rate 16 /min Height 63 inches 5'3" Weight 184.00 lb BMI (Body Mass Index) 32.6 kg/m2 BSA (Body Surface Area) 1.87 m2 [place] body weight in kilograms 52 O2 % BldC Oximetry 90 % Ora 03/06/2017 BP Systolic Sitting Left Arm 110 mmHg BP Diastolic Sitting Left Arm 70 mmHg Heart Rate 74 /min Respiratory Rate 18 /min Height 63 inches 5'3" Weight 176.00 lb BMI (Body Mass Index) 31.2 kg/m2 BSA (Body Surface Area) 1.83 m2 [place] body weight in kilograms 52 O2 % BldC Oximetry 95 % 01/23/2017 BP Systolic 115 mmHg BP Diastolic 71 mmHg Body Temperature 98.4 F Heart Rate 87 /min Respiratory Rate 16 /min Height 63 inches 5'3" Weight 173.50 lb BMI (Body Mass Index) 30.7 kg/m2 BSA (Body Surface Area) 1.82 m2 [place] body weight in kilograms 52 O2 % BldC Oximetry 93 % Pain Level 0 01/03/2017 BP Systolic Sitting Left Arm 102 mmHg BP Diastolic Sitting Left Arm 64 mmHg Heart Rate 71 /min Respiratory Rate 16 /min Height 63 inches 5'3" Weight 170.00 lb BMI (Body Mass Index) 30.1 kg/m2 BSA (Body Surface Area) 1.80 m2 [place] body weight in kilograms 52 O2 % BldC Oximetry 93 % Results Test Date Test Result H/L Range Note Unloinc 08/02/2017 Unloinc Room Air Unloinc Yes Arterial blood 08/02/2017 Arterial blood partial 64 Low 80-105 partial pressure of pressure of oxygen oxygen adjusted adjusted to patient's actualtemperature Arterial blood 08/02/2017 Arterial blood partial 38 35-45 partial pressure of pressure of carbon carbon dioxide dioxide with temperature correction Arterial blood pH 08/02/2017 Arterial blood pH 7.48 High 7.35-7.45 measurement with measurement with patient tempera patient temperature correction Arterial blood oxygen 08/02/2017 Arterial blood oxygen 93 90-99 saturation saturation measurement measurement Arterial blood gas 08/02/2017 Arterial blood gas [employer].Rad[employer]Art. measurement measurement Arterial blood 08/02/2017 Arterial blood 27 High 22-26 bicarbonate bicarbonate measurement measurement (moles/volume) (moles/volu Arterial blood base 08/02/2017 Arterial blood base 4 High -2-2 excess determination excess determination by by calcul calculation Prothrombin time (PT) 08/02/2017 Prothrombin time (PT) 13.3 12.0-14.4 in platelet poor in platelet poor plasma plasma Platelet poor plasma 08/02/2017 Platelet poor plasma 1.0 0.9-1.1 international international normalized rati normalized ratio (Inr) by coagulation assay (relative time) Activated partial 08/02/2017 Activated partial 45.5 High 23.4-35.0 thromboplastin time thromboplastin time (aPTT) in pl (aPTT) in platelet poor plasma by coagulation assay Unloinc 08/02/2017 Unloinc Sitting Up In Bed Determination of 08/02/2017 Determination of 21 21-100 inhaled oxygen inhaled oxygen concentration (vol concentration (volume fraction) Unloin 08/02/2017 Unloinc 2 Unloinc N/C Unloinc Ambulating Unloinc 18 Heart rate by oximetry 08/02/2017 Heart rate by oximetry 90 Arterial blood oxygen 08/02/2017 Arterial blood oxygen 92 Low 93-98 saturation measurement saturation measurement by pu by pulse oximetry Serum carbon dioxide 08/01/2017 Serum carbon dioxide 29 21-32 measurement measurement RDW RBC Auto 08/01/2017 RDW RBC Auto 43.7 3-47 Potassium SerPl-sCnc 08/01/2017 Potassium SerPl-sCnc 4.3 3.5-5.1 Neutrophils/leuk NFr 08/01/2017 Neutrophils/leuk NFr 80.4 High 40.4-72.8 Bld Auto Bld Auto Neutrophils # Bld Auto 08/01/2017 Neutrophils # Bld Auto 8.68 High 1.8- 7.0 Monocytes/leuk NFr Bld 08/01/2017 Monocytes/leuk NFr Bld 4.7 4.3-13.2 Auto Auto Manual blood variant 08/01/2017 Manual blood variant 5 0-7 lymphocytes as lymphocytes as percentage of percentage of leukocytes Manual blood segmented 08/01/2017 Manual blood segmented 83 High 33-73 neutrophils/100 neutrophils/100 leukocytes leukocytes Manual blood 08/01/2017 Manual blood 4 0-10 monocytes/100 monocytes/100 leukocytes leukocytes Manual blood 08/01/2017 Manual blood 7 Low 20-42 lymphocytes/100 lymphocytes/100 leukocytes leukocytes Manual blood band 08/01/2017 Manual blood band 1 0-8 neutrophils form/100 neutrophils form/100 leukocytes leukocytes Lymphocytes/leuk NFr 08/01/2017 Lymphocytes/leuk NFr 14.6 Low 20.0-42.0 Bld Auto Bld Auto Serum or plasma 08/01/2017 Serum or plasma 3.8 3.4-5.0 albumin measurement albumin measurement (mass/volume) (mass/volume) Serum or plasma 08/01/2017 Serum or plasma 102 45-117 alkaline phosphatase alkaline phosphatase measurement ( measurement (enzymatic activity/volume) Serum or plasma 08/01/2017 Serum or plasma 17 15-37 aspartate aspartate aminotransferase aminotransferase measure measurement (enzymatic activity/volume) Serum or plasma 08/01/2017 Serum or plasma 9.3 8.5-10.1 calcium measurement calcium measurement (mass/volume) (mass/volume) Serum or plasma 08/01/2017 Serum or plasma 232 High 26-192 creatine kinase creatine kinase measurement (enzym measurement (enzymatic activity/volume) Serum or plasma 08/01/2017 Serum or plasma 0.8 0.6-1.3 creatinine measurement creatinine measurement (mass/volum (mass/volume) Serum or plasma 08/01/2017 Serum or plasma 102 74-106 glucose measurement glucose measurement (mass/volume) (mass/volume) Serum or plasma 08/01/2017 Serum or plasma 8.0 6.4-8.2 protein measurement protein measurement (mass/volume) (mass/volume) Serum or plasma total 08/01/2017 Serum or plasma total 0.2 0.2-1.0 bilirubin measurement bilirubin measurement (mass/ (mass/volume) Serum or plasma urea 08/01/2017 Serum or plasma urea 9 7-18 nitrogen measurement nitrogen measurement (mass/vo (mass/volume) Serum sodium 08/01/2017 Serum sodium 135 Low 136-145 measurement measurement Unloinc 08/01/2017 Unloinc Diff Ordered * Miscellaneous 08/01/2017 * Miscellaneous Test(s) added studies (set) studies (set) Automated blood 08/01/2017 Automated blood 39.3 36.0-46.1 hematocrit (volume hematocrit (volume fraction) fraction) Automated blood 08/01/2017 Automated blood 438 High 155-360 platelet count platelet count Automated blood 08/01/2017 Automated blood 9.3 8.9-12.4 platelet mean volume platelet mean volume measurement measurement Automated erythrocyte 08/01/2017 Automated erythrocyte 29.5 25.9-32.7 mean corpuscular mean corpuscular hemoglobin hemoglobin (mass per erythrocyte) Automated erythrocyte 08/01/2017 Automated erythrocyte 33.3 30.8-34.3 mean corpuscular mean corpuscular hemoglobin hemoglobin concentration measurement (mass/volume) Automated erythrocyte 08/01/2017 Automated erythrocyte 88.5 80.9-99.0 mean corpuscular mean corpuscular volume volume Blood erythrocytes 08/01/2017 Blood erythrocytes 4.44 3.90-5.40 automated count automated count (number/volume) (number/volume) Blood hemoglobin 08/01/2017 Blood hemoglobin 13.1 11.6-15.8 measurement measurement (mass/volume) (mass/volume) Blood leukocytes 08/01/2017 Blood leukocytes 10.2 3.1-10.7 automated count automated count (number/volume) (number/volume) RDW RBC Auto-Rto 08/01/2017 RDW RBC Auto-Rto 13.7 11.7-14.4 Alt SerPl-cCnc 08/01/2017 Alt SerPl-cCnc 37 12-78 Albumin/Glob SerPl 08/01/2017 Albumin/Glob SerPl 0.9 Eosinophil/leuk NFr 08/01/2017 Eosinophil/leuk NFr 0.1 0.0-6.6 Bld Auto Bld Auto Globulin Ser Calc-mCnc 08/01/2017 Globulin Ser Calc-mCnc 4.2 1.9-4.3 Chloride SerPl-sCnc 08/01/2017 Chloride SerPl-sCnc 100 98-107 Blood total cell count 08/01/2017 Blood total cell count 100 Blood platelet 08/01/2017 Blood platelet Slight adequacy detection by adequacy detection by Increase light microsc light microscopy Blood monocytes 08/01/2017 Blood monocytes 0.51 0.3-0.9 automated count automated count (number/volume) (number/volume) Blood manual 08/01/2017 Blood manual Few LRG PLTS differential comment differential comment Seen interpretation ( interpretation (narrative result) Blood anisocytosis 08/01/2017 Blood anisocytosis 1+ detection by light detection by light microscopy microscopy Basophils/leuk NFr Bld 08/01/2017 Basophils/leuk NFr Bld 0.2 0.0-1.1 Auto Auto BUN/Creat SerPl 08/01/2017 BUN/Creat SerPl 11.2 Automated blood 08/01/2017 Automated blood 1.58 1.0-4.0 lymphocyte count lymphocyte count (number/volume) (number/volume) Automated blood 08/01/2017 Automated blood 0.01 0.0-0.5 eosinophil count eosinophil count Automated blood 08/01/2017 Automated blood 0.02 0.0-0.1 basophil count basophil count (count/volume) (count/volume) Anion Gap SerPl-sCnc 08/01/2017 Anion Gap SerPl-sCnc 6 Low 8-16 TSH SerPl-aCnc 05/14/2017 TSH SerPl-aCnc 1.61 0.30-4.20 Serum or plasma 05/14/2017 Serum or plasma 156 High <150 triglyceride triglyceride measurement (mass/vol measurement (mass/volume) Serum or plasma free 05/14/2017 Serum or plasma free 1.02 0.76-1.46 thyroxine (FT4) thyroxine (FT4) measurement ( measurement (mass/volume) Serum or plasma 05/14/2017 Serum or plasma 235 High <200 cholesterol cholesterol measurement (mass/volu measurement (mass/volume) Serum or plasma 05/14/2017 Serum or plasma 143 < 100 cholesterol in LDL cholesterol in LDL measurement by measurement by calculation (mass/volume) Serum or plasma 05/14/2017 Serum or plasma 61 >40 cholesterol in HDL cholesterol in HDL measurement (ma measurement (mass/volume) pH Ur Strip.auto 12/25/2016 pH Ur Strip.auto 6.5 6.5-7.5 Urobilinogen Ur 12/25/2016 Urobilinogen Ur 0.2 0.2-1.0 Strip-aCnc Strip-aCnc Urine total bilirubin 12/25/2016 Urine total bilirubin Negative Negative detection by automated detection by automated test test strip Ua RFX Micro & Culture 12/25/2016 Urine Color YELLOW Yellow 1 II Urine Clarity CLEAR Clear 1 Urine Glucose - Dipstick NEGATIVE mg/dL Negative 1 Urine Bilirubin - Dipstick NEGATIVE Negative 1 Urine Ketone NEGATIVE mg/dL Negative 1 Urine Specific Salmon 1.010 1.010-1.030 1 Urine Blood NEGATIVE Negative 1 Urine PH 6.5 6.5-7.5 1 Urine Protein - Dipstick NEGATIVE mg/dL Negative 1 Urine Urobilinogen - Dipstick 0.2 E.U./dL 0.2-1.0 1 Urine Nitrite - Dipstick NEGATIVE Negative 1 Urine Leuk Esterase NEGATIVE Negative 1 Source: URINE, CLEAN CAT <SEE NOTE> 1, 2 Color Ur 12/25/2016 Color Ur Yellow Yellow Ketones Ur 12/25/2016 Ketones Ur Negative Negative Strip.auto-mCnc Strip.auto-mCnc Leukocyte esterase 12/25/2016 Leukocyte esterase Negative Negative Ur Ql Strip.auto Ur Ql Strip.auto Nitrite Ur Ql 12/25/2016 Nitrite Ur Ql Negative Negative Strip.auto Strip.auto Prot Ur 12/25/2016 Prot Ur Negative Negative Strip.auto-mCnc Strip.auto-mCnc Specific gravity of 12/25/2016 Specific gravity of 1.010 1.010-1.030 Urine by Automated Urine by Automated test strip test strip Urine appearance 12/25/2016 Urine appearance Clear Clear determination determination Urine glucose 12/25/2016 Urine glucose Negative Negative measurement by measurement by automated test automated test strip strip (mass/volume) Urine hemoglobin 12/25/2016 Urine hemoglobin Negative Negative detection by detection by automated test automated test strip strip WBC # Bld Auto 12/24/2016 WBC # Bld Auto 22.2 High 3.1-10.7 Sodium SerPl-sCnc 12/24/2016 Sodium SerPl-sCnc 140 136-145 Serum or plasma 12/24/2016 Serum or plasma 8 7-18 urea nitrogen urea nitrogen measurement measurement (mass/vo (mass/volume) Serum or plasma 12/24/2016 Serum or plasma 0.8 0.6-1.3 creatinine creatinine measurement measurement (mass/volum (mass/volume) Serum or plasma 12/24/2016 Serum or plasma 8.6 8.5-10.1 calcium measurement calcium measurement (mass/volume) (mass/volume) RDW RBC Auto-Rto 12/24/2016 RDW RBC Auto-Rto 14.1 11.7-14.4 Potassium 12/24/2016 Potassium 4.0 3.5-5.1 SerPl-sCnc SerPl-sCnc Platelets 12/24/2016 Platelets 375 150-400 [#/volume] in Blood [#/volume] in Blood by Automated count by Automated count Aot Request 12/24/2016 Aot Request Test(s) added 1, 3 Tests to be added: h pylori ab asse <SEE NOTE> 1, 4 Instructions: if blood in lab <SEE NOTE> 1, 5 * Miscellaneous 12/24/2016 * Miscellaneous Test(s) added studies (set) studies (set) CBC 12/24/2016 White Blood Count 22.2 K/uL High 3.1-10.7 1 Red Blood Count 4.20 M/uL 3.90-5.40 1 Hemoglobin 12.9 gm/dL 11.6-15.8 1 Hematocrit 39.5 % 36.0-46.1 1 Mean Cell Volume 94.0 fl 80.9-99.0 1 Mean Corpuscular HGB 30.7 pg 25.9-32.7 1 Mean Corpuscular HGB Conc 32.7 g/dL 30.8-34.3 1 Platelet Count 375 K/uL 150-400 1 Red Cell Distri Width %CV 14.1 % 11.7-14.4 1 Mean Platelet Volume 10.2 fL 8.9-12.4 1 Basic Metabolic Panel 12/24/2016 Glucose 165 mg/dL High 74-106 1 BUN 8 mg/dL 7-18 1 Creatinine 0.8 mg/dL 0.6-1.3 1 Glom Filtration Rate, Estimate >60 mL/min >60 1 If >60 mL/min >60 1, 6 BUN/Creat 10.0 ratio 1 Sodium 140 mmol/L 136-145 1 Potassium 4.0 mmol/L 3.5-5.1 1 Chloride 105 mmol/L 98-107 1 Carbon Dioxide 27 mmol/L 21-32 1 Anion Gap 8 mEq/L 8-16 1 Calcium 8.6 mg/dL 8.5-10.1 1 Anion Gap SerPl-sCnc 12/24/2016 Anion Gap SerPl-sCnc 8 8-16 Automated erythrocyte 12/24/2016 Automated erythrocyte 30.7 25.9-32.7 mean corpuscular mean corpuscular hemoglobin hemoglobin (mass per erythrocyte) Automated erythrocyte 12/24/2016 Automated erythrocyte 32.7 30.8-34.3 mean corpuscular mean corpuscular hemoglobin hemoglobin concentration measurement (mass/volume) Automated erythrocyte 12/24/2016 Automated erythrocyte 94.0 80.9-99.0 mean corpuscular mean corpuscular volume volume BUN/Creat SerPl 12/24/2016 BUN/Creat SerPl 10.0 Blood erythrocytes 12/24/2016 Blood erythrocytes 4.20 3.90-5.40 automated count automated count (number/volume) (number/volume) Blood hemoglobin 12/24/2016 Blood hemoglobin 12.9 11.6-15.8 measurement measurement (mass/volume) (mass/volume) Co2 SerPl-sCnc 12/24/2016 Co2 SerPl-sCnc 27 21-32 Chloride SerPl-sCnc 12/24/2016 Chloride SerPl-sCnc 105 98-107 Glucose [Mass/volume] 12/24/2016 Glucose [Mass/volume] 165 High 74-106 in Serum or Plasma in Serum or Plasma Hct VFr Bld Auto 12/24/2016 Hct VFr Bld Auto 39.5 36.0-46.1 PMV Bld Auto 12/24/2016 PMV Bld Auto 10.2 8.9-12.4 RDW RBC Auto 12/23/2016 RDW RBC Auto 44.4 3-47 Serum or plasma 12/23/2016 Serum or plasma 3.7 3.4-5.0 albumin measurement albumin measurement (mass/volume) (mass/volume) Serum or plasma 12/23/2016 Serum or plasma 105 45-117 alkaline phosphatase alkaline phosphatase measurement ( measurement (enzymatic activity/volume) Serum or plasma 12/23/2016 Serum or plasma 121 26-192 creatine kinase creatine kinase measurement (enzym measurement (enzymatic activity/volume) Serum or plasma 12/23/2016 Serum or plasma 8.0 6.4-8.2 protein measurement protein measurement (mass/volume) (mass/volume) Serum or plasma total 12/23/2016 Serum or plasma total 0.3 0.2-1.0 bilirubin measurement bilirubin measurement (mass/ (mass/volume) Total Cells Counted 12/23/2016 Total Cells Counted 100 Bld Bld Unloinc 12/23/2016 Unloinc Diff Ordered Lactate [Moles/volume] 12/23/2016 Lactate [Moles/volume] 1.8 0.4-1.9 in Serum or Plasma in Serum or Plasma Alt SerPl-cCnc 12/23/2016 Alt SerPl-cCnc 27 12-78 Albumin/Glob SerPl 12/23/2016 Albumin/Glob SerPl 0.9 Aspartate 12/23/2016 Aspartate 19 15-37 aminotransferase aminotransferase [Enzymatic [Enzymatic activity/vol activity/volume] in Serum or Plasma Basophils [#/volume] 12/23/2016 Basophils [#/volume] 0.04 0.0-0.1 in Blood by Automated in Blood by Automated count count Basophils/100 12/23/2016 Basophils/100 1 0-2 leukocytes in Blood by leukocytes in Blood by Manual count Manual count Blood monocytes 12/23/2016 Blood monocytes 1.38 High 0.3-0.9 automated count automated count (number/volume) (number/volume) Blood platelet 12/23/2016 Blood platelet Normal adequacy detection by adequacy detection by light microsc light microscopy Eosinophil # Bld Auto 12/23/2016 Eosinophil # Bld Auto 0.09 0.0-0.5 RBC morphology 12/23/2016 RBC morphology Normal Neuts Seg/leuk NFr Bld 12/23/2016 Neuts Seg/leuk NFr Bld 74 High 33-73 Manual Manual Neuts Band/leuk NFr 12/23/2016 Neuts Band/leuk NFr 7 0-8 Bld Manual Bld Manual Neutrophils # Bld Auto 12/23/2016 Neutrophils # Bld Auto 15.65 High 1.8- 7.0 Monocytes/100 12/23/2016 Monocytes/100 5 0-10 leukocytes in Blood by leukocytes in Blood by Manual count Manual count Lymphocytes/100 12/23/2016 Lymphocytes/100 12 Low 20-42 leukocytes in Blood by leukocytes in Blood by Manual coun Manual count Lymphocytes [#/volume] 12/23/2016 Lymphocytes [#/volume] 1.67 1.0-4.0 in Blood by Automated in Blood by Automated count count Globulin Ser Calc-mCnc 12/23/2016 Globulin Ser Calc-mCnc 4.3 1.9-4.3 Eosinophil % 12/23/2016 Eosinophil % 1 0-5 Serum or plasma 12/09/2016 Serum or plasma 172 High <150 triglyceride triglyceride measurement (mass/vol measurement (mass/volume) Serum or plasma 12/09/2016 Serum or plasma 232 High <200 cholesterol cholesterol measurement (mass/volu measurement (mass/volume) Serum or plasma 12/09/2016 Serum or plasma 137 < 100 cholesterol in LDL cholesterol in LDL measurement by measurement by calculation (mass/volume) Serum or plasma 12/09/2016 Serum or plasma 61 >40 cholesterol in HDL cholesterol in HDL measurement (ma measurement (mass/volume) Serum or plasma 09/11/2016 Serum or plasma 57.2 30.0-100.0 25-hydroxyvitamin D 25-hydroxyvitamin D measurement (m measurement (mass/volume) Serum or plasma 09/11/2016 Serum or plasma 1.03 0.76-1.46 thyroxine (T4) free thyroxine (T4) free measurement (m measurement (mass/volume) TSH SerPl-aCnc 09/11/2016 TSH SerPl-aCnc 0.91 0.30-4.20 Neutrophils/leuk NFr 09/11/2016 Neutrophils/leuk NFr 83.0 High 40.4-72.8 Bld Auto Bld Auto Monocytes/leuk NFr Bld 09/11/2016 Monocytes/leuk NFr Bld 3.9 Low 4.3-13.2 Auto Auto Lymphocytes/leuk NFr 09/11/2016 Lymphocytes/leuk NFr 12.5 Low 20.0-42.0 Bld Auto Bld Auto Eosinophil/leuk NFr 09/11/2016 Eosinophil/leuk NFr 0.3 0.0-6.6 Bld Auto Bld Auto Basophils/leuk NFr Bld 09/11/2016 Basophils/leuk NFr Bld 0.3 0.0-1.1 Auto Auto 1 [place] [id number] 2 URINE, CLEAN CATCH 3 Tests: h pylori ab assessment please Instructions: if blood in lab suitable, please use; otherwise add on for next phlebotomy rounds please and thank you 4 h pylori ab assessment please 5 if blood in lab suitable, please use; otherwise add on for next phlebotomy rounds please and thank you 6 Note: Persistent reduction for 3 months or more in an eGFR <60 mL/min/1.73 m2 defines CKD. Patients with eGFR values >/=60 mL/min/1.73 m2 may also have CKD if evidence of persistent proteinuria is present. The original MDRD equation for estimated GFR is not valid for patients less than 18 years of age. Additional information may be found at www.kdo[facility].org. Procedures Date CPT Code Description Status 01/16/2017 28799 Bronchospasm Provocation Evaluation Multi Spirometric Completed Determinati 01/16/2017 01629 Spirometry Completed 01/13/2017 34518 Cystoscopy Completed 01/13/2017 35618 Colonoscopy Completed 01/13/2017 42699 EGD With Biopsy Completed Encounters Type Date Location Provider CPT E/M Dx Office Visit 09/18/2017 3:30[place] [address] J44.9 G47.33 F17.211 Office Visit 06/18/2017 4:00p [place] [address] J44.9 G47.33 F17.211 Office Visit 03/06/2017 2:45p [place] [address] J44.9 F17.211 Office Visit 01/22/2017 10:00a Surgical Office Peterson Willis [address]658 K57.90 Jamie Juarez R10.13 Z80.0 Office Visit 01/03/2017 1:00p [place] [address] J44.9 J30.89 G47.33 R10.13 Office Visit 04/30/2013 11:10a [place] [address] 786.50 Plan of Care Future Appointment(s):08/25/2018 1:30 pm - Amb[facility]io [facility] /2018 - Ambrosio Marlow MDJ44.9 Chronic obstructive pulmonary disease, unspecifiedFollow up:6 vckrxqY08.1 Neoplasm of uncertain behavior of trachea, bronchus and lungG47.33 Obstructive sleep apnea (adult) (pediatric)F17.211 Nicotine dependence, cigarettes, in uoklkyimfS59.0 Abdominal distension (gaseous )
[2018-03-15 16:36] VITALS: BP 135/69
--- NOTE | 2018-03-15 16:53 | UC ---
Respiratory Complaint HPI - HPI Summary HPI Summary: The patient is a 62-year-old female with a five-day history of cough and wheezing. She has a history of COPD and is on home O2 when necessary. She has used her nebulizer during this illness. She is bringing up yellowish sputum with this cough. She denies any chest pain. She also complains of a teary left thigh which is becoming red. This started about 24 hours ago. She has no nausea vomiting or diarrhea. - History of Current Complaint Chief Complaint: UCRespiratory Stated Complaint: LEFT EYE CONCERN,COUGH Time Seen by Provider: 03/15/18 16:41 Hx Obtained From: Patient Hx Last Menstrual Period: n/a Onset/Duration: Gradual Onset, Lasting Days Timing: Constant Severity Initially: Moderate Severity Currently: Moderate Pain Intensity: 0 Pain Scale Used: 0-10 Numeric Character: Cough: Productive, Sputum Description: - yellowish and thick Aggravating Factors: Nothing Alleviating Factors: Bronchodilator Associated Signs And Symptoms: Positive: Wheezing, Nasal Congestion Related History: Similar Episode/Dx as: - acute exacerbation of COPD - Allergies/Home Medications Allergies/Adverse Reactions: Allergies Allergy/AdvReac Type Severity Reaction Status Date / Time citalopram [From Celexa] Allergy Severe Anaphylatic Verified 03/15/18 16:37 Shock Iodinated Contrast- Oral and Allergy Severe Anaphylatic Verified 03/15/18 16:37 IV Dye Shock moxifloxacin [From Avelox] Allergy Severe Anaphylatic Verified 03/15/18 16:37 Shock ceftriaxone [From Rocephin] AdvReac Severe Abdominal Verified 03/15/18 16:37 Pain Home Medications: Home Medications Amitriptyline TAB* [Elavil TAB*] 25 mg PO BEDTIME 03/15/18 [History Confirmed ] PMH/Surg Hx/FS Hx/Imm Hx Previously Healthy: Yes Endocrine History: Dyslipidemia Respiratory History: COPD, Asthma, Bronchitis, Pneumonia Psychological History: Anxiety Other History Of: Negative For: HIV, Hepatitis B, Hepatitis C - Surgical History Surgical History: Yes Surgery Procedure, Year, and Place: skin cancer removed September 2012. x1 - Family History Known Family History: Positive: Respiratory Disease Negative: Cardiac Disease, Hypertension, Renal Disease - Social History Alcohol Use: Occasionally Substance Use Type: None Smoking Status (MU): Former Smoker Type: Cigarettes Amount Used/How Often: 10-20 cigarettes daily Length of Time of Smoking/Using Tobacco: 41 Years Have You Smoked in the Last Year: Yes When Did the Patient Quit Smoking/Using Tobacco: 2017 Household Exposure Type: Cigarettes - Immunization History Most Recent Influenza Vaccination: 11/2016 Vaccination Up to Date: No Review of Systems All Other Systems Reviewed And Are Negative: Yes Constitutional: Positive: Negative Skin: Positive: Negative Eyes: Positive: Eye Redness ENT: Positive: Nasal Discharge, Sinus Congestion Respiratory: Positive: Shortness Of Breath, Cough Cardiovascular: Positive: Negative Gastrointestinal: Positive: Negative Genitourinary: Positive: Negative Motor: Positive: Negative Neurovascular: Positive: Negative Musculoskeletal: Positive: Negative Neurological: Positive: Negative Psychological: Positive: Negative Physical Exam Triage Information Reviewed: Yes Appearance: Well-Appearing, No Pain Distress, Well-Nourished Vital Signs: Initial Vital Signs Temp 97.8 F 03/15/18 16:34 Pulse 96 03/15/18 16:34 Resp 20 03/15/18 16:34 BP 135/69 03/15/18 16:34 Pulse Ox 95 03/15/18 16:34 Vital Signs Reviewed: Yes Eyes: Positive: Conjunctiva Inflamed - L ENT: Positive: Hearing grossly normal, Nasal congestion, Uvula midline. Negative: Tonsillar swelling, Tonsillar exudate, Trismus, Muffled voice, Hoarse voice, Dental tenderness, Sinus tenderness Neck: Positive: Supple, Nontender, No Lymphadenopathy Respiratory: Positive: No respiratory distress, No accessory muscle use, Wheezing Cardiovascular: Positive: RRR, No Murmur Musculoskeletal: Positive: ROM Intact, No Edema Neurological: Positive: Alert Psychological Exam: Normal Skin Exam: Normal UC Diagnostic Evaluation - Laboratory O2 Sat by Pulse Oximetry: 95 - low normal/not hypoxic Respiratory Course/Dx - Differential Dx/Diagnosis Provider Diagnosis: Acute exacerbation of chronic obstructive airways disease, Conjunctivitis, left eye Discharge - Sign-Out/Discharge Documenting (check all that apply): Patient Departure All imaging exams completed and their final reports reviewed: No Studies - Discharge Plan Condition: Stable Disposition: HOME Prescriptions: DOXYcycline CAP(*) [DOXYcycline 100MG CAP(*)] 100 mg PO BID #14 cap Polymyx/Trimethoprim OPTH* [Polytrim OPHTH*] 1 - 2 drop LEFT EYE QID #1 btl predniSONE [Deltasone 20 MG TAB] 40 mg PO DAILY #10 tab Patient Education Materials: Acute Bronchitis (ED), Conjunctivitis (ED) Referrals: Donald Power [Primary Care Provider] - 4 Days (if not better) - Billing Disposition and Condition Condition: STABLE Disposition: Home
== END 2018-03-15 16:59 | disposition home or self-care (01) ==
LOC: UCCORT 15:42
DX: H10.9 Unspecified conjunctivitis (principal); J44.1 Chronic obstructive pulmonary disease with (acute) exacerbation; Z99.81 Dependence on supplemental oxygen; Z88.8 Allergy status to other drugs, medicaments and biological substances; Z88.1 Allergy status to other antibiotic agents; Z91.041 Radiographic dye allergy status; Z87.891 Personal history of nicotine dependence
CPT/HCPCS: 99212; G0463

== ENCOUNTER 2018-04-24 07:00 | Emergency (ER) | payer OTHER, MEDICARE ==
[2018-04-24 07:15] VITALS: BP 128/61
--- NOTE | 2018-04-24 07:33 | ED ---
Throat Pain/Nasal Congestion - HPI Summary HPI Summary: 62 yr old female with a week of runny nose, coughing, and also has crackly feeling in right ear. She also began to use a new masacara a week ago and has had irritation to the eye when using it. No drainage from the eyes, but she has been having some itching and watering. No change in vision. She is coughing more, and does have a history of asthma. She has been using her inhalers. She has been using visine, and also left over antibiotic drops to the eyes but no change with this. - History of Current Complaint Chief Complaint: UCEye Time Seen by Provider: 04/24/18 07:16 - Allergies/Home Medications Allergies/Adverse Reactions: Allergies Allergy/AdvReac Type Severity Reaction Status Date / Time citalopram [From Celexa] Allergy Severe Anaphylatic Verified 04/24/18 07:13 Shock Iodinated Contrast- Oral and Allergy Severe Anaphylatic Verified 04/24/18 07:13 IV Dye Shock moxifloxacin [From Avelox] Allergy Severe Anaphylatic Verified 04/24/18 07:13 Shock ceftriaxone [From Rocephin] AdvReac Severe Abdominal Verified 04/24/18 07:13 Pain PMH/Surg Hx/FS Hx/Imm Hx Endocrine/Hematology History: Denies: Hx Diabetes, Hx Systemic Lupus Erythematosus, Hx Thyroid Disease Cardiovascular History: Denies: Hx Congestive Heart Failure, Hx Deep Vein Thrombosis, Hx Hypertension , Hx Myocardial Infarction, Hx Pacemaker/ICD Respiratory History: Reports: Hx Asthma, Hx Chronic Obstructive Pulmonary Disease (COPD) Denies: Hx Lung Cancer, Hx Pneumonia, Hx Pulmonary Embolism GI History: Denies: Hx Gall Bladder Disease, Hx Gastrointestinal Bleed, Hx Ulcer, Hx Urosepsis History: Denies: Hx Kidney Stones, Hx Renal Disease Musculoskeletal History: Denies: Hx Rheumatoid Arthritis Neurological History: Denies: Hx Dementia, Hx Migraine, Hx Seizures, Hx Transient Ischemic Attacks (TIA) Psychiatric History: Reports: Hx Anxiety Denies: Hx Depression, Hx Schizophrenia, Hx Bipolar Disorder - Cancer History Cancer Type, Location and Year: skin - Surgical History Surgery Procedure, Year, and Place: skin cancer removed September 2012. x1 Infectious Disease History: No Infectious Disease History: Denies: Hx Hepatitis, Hx Human Immunodeficiency Virus (HIV), Traveled Outside the [place] in Last 30 Days - Family History Known Family History: Positive: Respiratory Disease Negative: Cardiac Disease, Hypertension, Renal Disease - Social History Alcohol Use: Rare Substance Use Type: Reports: None Smoking Status (MU): Former Smoker Type: Cigarettes Amount Used/How Often: 10-20 cigarettes daily Length of Time of Smoking/Using Tobacco: 41 Years Have You Smoked in the Last Year: Yes Review of Systems Negative: Fever, Chills Negative: Photophobia, Blurred Vision, Drainage Positive: Ear Ache, Nasal Discharge Positive: Cough All Other Systems Reviewed And Are Negative: Yes Physical Exam Triage Information Reviewed: Yes Vital Signs On Initial Exam: Initial Vitals Temp Pulse Resp BP Pulse Ox 97.4 F 98 20 128/61 95 04/24/18 07:11 04/24/18 07:11 04/24/18 07:11 04/24/18 07:11 04/24/18 07:11 Vital Signs Reviewed: Yes Appearance: Positive: Well-Appearing, No Pain Distress Skin: Positive: Warm, Skin Color Reflects Adequate Perfusion Head/Face: Positive: Normal Head/Face Inspection Eyes: Positive: EOMI, ABBEY, Other: - mild irritation to conjunctiva, but no drainage. ENT: Positive: Nasal congestion, TM red - right with effusion. Negative: Muffled voice Neck: Positive: Supple, Nontender Respiratory/Lung Sounds: Positive: Clear to Auscultation, Breath Sounds Present Cardiovascular: Positive: RRR. Negative: Murmur Abdomen Description: Negative: Distended Musculoskeletal: Positive: Strength/ROM Intact Neurological: Positive: Sensory/Motor Intact, Alert, Oriented to Person Place, Time, CN Intact II-III Psychiatric: Positive: Normal - Clint Coma Scale Best Eye Response: 4 - Spontaneous Best Motor Response: 6 - Obeys Commands Best Verbal Response: 5 - Oriented Coma Scale Total: 15 Diagnostics - Vital Signs Vital Signs Temp Pulse Resp BP Pulse Ox 04/24/18 07:11 97.4 F 98 20 128/61 95 - Laboratory Lab Statement: Any lab studies that have been ordered have been reviewed, and results considered in the medical decision making process. EENT Course/Dx - Course Course Of Treatment: 62 yr old with right OM, Coughing and irritation to eyes most likley from [facility]. [facility] - Diagnoses Provider Diagnoses: Otitis media, Chemical conjunctivitis of both eyes, Acute bronchitis Discharge - Sign-Out/Discharge Documenting (check all that apply): Patient Departure All imaging exams completed and their final reports reviewed: No Studies - Discharge Plan Condition: Good Disposition: HOME Prescriptions: Clarithromycin TAB* [Biaxin 500 MG TAB*] 500 mg PO BID #20 tab predniSONE TAB* [Deltasone 20 MG TAB*] 40 mg PO DAILY #8 tab Patient Education Materials: Ear Infection (ED), Acute Bronchitis (ED) Referrals: Rayo Power DO [Primary Care Provider] - 3 Days Cheryl Brasher MD [Medical Doctor] - 2 Days Additional Instructions: Stop the mascara brand that you started using a week ago. Do not use any eye products the next week. See Eye doctor in follow up for eye exam as soon as possible. - Billing Disposition and Condition Condition: GOOD Disposition: Home
== END 2018-04-24 07:43 | disposition home or self-care (01) ==
LOC: UCCORT 07:00
DX: J20.9 Acute bronchitis, unspecified (principal); H66.91 Otitis media, unspecified, right ear; H10.213 Acute toxic conjunctivitis, bilateral; T49.8X5A Adverse effect of other topical agents, initial encounter; J45.909 Unspecified asthma, uncomplicated; J44.9 Chronic obstructive pulmonary disease, unspecified; Z88.8 Allergy status to other drugs, medicaments and biological substances; Z88.1 Allergy status to other antibiotic agents; Z91.041 Radiographic dye allergy status; Z87.891 Personal history of nicotine dependence; Y92.9 Unspecified place or not applicable
CPT/HCPCS: 99212; G0463

== ENCOUNTER 2018-08-12 07:25 | Emergency (ER) | payer OTHER, MEDICARE ==
[2018-08-12 07:44] VITALS: BP 136/71
[2018-08-12] MEDS ORDERED: predniSONE TAB* 20 MG PO ONE (07:55)
[2018-08-12] MEDS ORDERED: Albuterol/Ipratropium NEB.SOL* Albuterol 2.5 MG/Ipratropium 0.5 MG 3 ML INH ONE (07:55)
--- NOTE | 2018-08-12 08:19 | ED ---
Respiratory - HPI Summary HPI Summary: 62 yr old female with the complaint of chest congestion, coughing productive of sputum. Onset two days ago. Symptoms are moderate, and associated with tightness and coughing spells. She states she needs steroids and antibiotics. She also reports that she was working in the garden,and spreading mulch on and that she got bruises, and she was straining using her arms. She states she felt a pull in the left forarm muscle with some bruising. It is less swollen now. - History of Current Complaint Chief Complaint: UCRespiratory Stated Complaint: COUGH,CONGESTION Time Seen by Provider: 08/12/18 07:42 Pain Intensity: 0 - Allergy/Home Medications Allergies/Adverse Reactions: Allergies Allergy/AdvReac Type Severity Reaction Status Date / Time citalopram [From Celexa] Allergy Severe Anaphylatic Verified 08/12/18 07:45 Shock Iodinated Contrast- Oral and Allergy Severe Anaphylatic Verified 08/12/18 07:45 IV Dye Shock moxifloxacin [From Avelox] Allergy Severe Anaphylatic Verified 08/12/18 07:45 Shock ceftriaxone [From Rocephin] AdvReac Severe Abdominal Verified 08/12/18 07:45 Pain PMH/Surg Hx/FS Hx/Imm Hx Endocrine/Hematology History: Denies: Hx Diabetes, Hx Systemic Lupus Erythematosus, Hx Thyroid Disease Cardiovascular History: Denies: Hx Congestive Heart Failure, Hx Deep Vein Thrombosis, Hx Hypertension , Hx Myocardial Infarction, Hx Pacemaker/ICD Respiratory History: Reports: Hx Asthma, Hx Chronic Obstructive Pulmonary Disease (COPD) Denies: Hx Lung Cancer, Hx Pneumonia, Hx Pulmonary Embolism GI History: Denies: Hx Gall Bladder Disease, Hx Gastrointestinal Bleed, Hx Ulcer, Hx Urosepsis History: Denies: Hx Kidney Stones, Hx Renal Disease Musculoskeletal History: Denies: Hx Rheumatoid Arthritis Neurological History: Denies: Hx Dementia, Hx Migraine, Hx Seizures, Hx Transient Ischemic Attacks (TIA) Psychiatric History: Reports: Hx Anxiety Denies: Hx Depression, Hx Schizophrenia, Hx Bipolar Disorder - Cancer History Cancer Type, Location and Year: skin - Surgical History Surgery Procedure, Year, and Place: skin cancer removed September 2012. x1 Infectious Disease History: No Infectious Disease History: Denies: Hx Hepatitis, Hx Human Immunodeficiency Virus (HIV), Traveled Outside the [place] in Last 30 Days - Family History Known Family History: Positive: Respiratory Disease Negative: Cardiac Disease, Hypertension, Renal Disease - Social History Occupation: Works From/At Home Lives: With Family Alcohol Use: Rare Substance Use Type: Reports: None Smoking Status (MU): Former Smoker Type: Cigarettes Amount Used/How Often: 10-20 cigarettes daily Length of Time of Smoking/Using Tobacco: 41 Years Have You Smoked in the Last Year: Yes Review of Systems Constitutional: Negative Eyes: Negative Positive: Cough Positive: Other - bruised forearm All Other Systems Reviewed And Are Negative: Yes Physical Exam Triage Information Reviewed: Yes Vital Signs On Initial Exam: Initial Vitals Temp Pulse Resp BP Pulse Ox 98.3 F 84 16 136/71 95 08/12/18 07:35 08/12/18 07:35 08/12/18 07:35 08/12/18 07:35 08/12/18 07:35 Vital Signs Reviewed: Yes Appearance: Positive: Well-Appearing, No Pain Distress Skin: Positive: Warm, Other - bruise left forearm Head/Face: Positive: Normal Head/Face Inspection Eyes: Positive: EOMI ENT: Positive: Normal ENT inspection, Pharynx normal, Nasal congestion, TM red - left Neck: Positive: Nontender Respiratory/Lung Sounds: Positive: Wheezes - bilateral faint Cardiovascular: Positive: RRR. Negative: Murmur Abdomen Description: Negative: Distended Musculoskeletal: Positive: Strength/ROM Intact Neurological: Positive: Sensory/Motor Intact, Alert, Oriented to Person Place, Time, CN Intact II-III Psychiatric: Positive: Normal Diagnostics - Vital Signs Vital Signs Temp Pulse Resp BP Pulse Ox 08/12/18 07:35 98.3 F 84 16 136/71 95 - Laboratory Lab Statement: Any lab studies that have been ordered have been reviewed, and results considered in the medical decision making process. - Radiology chest pa lat Radiology Interpretation Completed By: Radiologist - COPD Disposition - Course Course Of Treatment: 62 yr old with COPD exacerbation, left OM, and muscle strain. Rx pred, doxy - Diagnoses Provider Diagnoses: COPD with exacerbation, Hypertension, Muscle strain of forearm, Left otitis media Discharge - Sign-Out/Discharge Documenting (check all that apply): Patient Departure All imaging exams completed and their final reports reviewed: Yes - Discharge Plan Condition: Good Disposition: HOME Prescriptions: DOXYcycline CAP(*) [DOXYcycline 100MG CAP(*)] 100 mg PO BID #20 cap predniSONE TAB* [Deltasone 20 MG TAB*] 40 mg PO DAILY #8 tab Patient Education Materials: COPD (Chronic Obstructive Pulmonary Disease) (ED) , Muscle Strain (ED), Ear Infection (ED) Referrals: Rayo Power DO [Primary Care Provider] - 2 Days - Billing Disposition and Condition Condition: GOOD Disposition: Home
== END 2018-08-12 08:43 | disposition home or self-care (01) ==
LOC: UCCORT 07:25
DX: J44.1 Chronic obstructive pulmonary disease with (acute) exacerbation (principal); S56.912A Strain of unspecified muscles, fascia and tendons at forearm level, left arm, initial encounter; I10 Essential (primary) hypertension; H66.92 Otitis media, unspecified, left ear; X58.XXXA Exposure to other specified factors, initial encounter; Z87.891 Personal history of nicotine dependence; Z88.8 Allergy status to other drugs, medicaments and biological substances; Z91.041 Radiographic dye allergy status
CPT/HCPCS: 71046; 99212; A9270-GY; G0463; J7512

== ENCOUNTER 2018-09-05 13:15 | Emergency (ER) | payer MEDICARE, OTHER ==
[2018-09-05 13:48] VITALS: BP 119/59
--- NOTE | 2018-09-05 13:56 | UC ---
Respiratory Complaint HPI - HPI Summary HPI Summary: 62 yo female with worsening cough/congestion/wheezing x about a day no fever no CP - History of Current Complaint Chief Complaint: UCRespiratory Stated Complaint: CONGESTION,COUGH Time Seen by Provider: 09/05/18 13:45 Hx Obtained From: Patient Hx Last Menstrual Period: n/a Onset/Duration: Gradual Onset, Lasting Hours Timing: Constant Severity Initially: Moderate Severity Currently: Moderate Pain Intensity: 0 Pain Scale Used: 0-10 Numeric Character: Cough: Nonproductive Aggravating Factors: Other - didn't use her O2 last PM with her CPAP Alleviating Factors: Bronchodilator Associated Signs And Symptoms: Positive: Wheezing Related History: Similar Episode/Dx as: - exacerbation of COPD - Allergies/Home Medications Allergies/Adverse Reactions: Allergies Allergy/AdvReac Type Severity Reaction Status Date / Time citalopram [From Celexa] Allergy Severe Anaphylatic Verified 08/12/18 07:45 Shock Iodinated Contrast- Oral and Allergy Severe Anaphylatic Verified 08/12/18 07:45 IV Dye Shock moxifloxacin [From Avelox] Allergy Severe Anaphylatic Verified 08/12/18 07:45 Shock ceftriaxone [From Rocephin] AdvReac Severe Abdominal Verified 08/12/18 07:45 Pain PMH/Surg Hx/FS Hx/Imm Hx Previously Healthy: Yes Respiratory History: COPD, Bronchitis Other History Of: Negative For: HIV, Hepatitis B, Hepatitis C - Surgical History Surgical History: Yes Surgery Procedure, Year, and Place: skin cancer removed September 2012. x1. Skin cancer removed from face one week ago - Family History Known Family History: Positive: Respiratory Disease Negative: Cardiac Disease, Hypertension, Renal Disease - Social History Alcohol Use: Rare Substance Use Type: None Smoking Status (MU): Former Smoker Type: Cigarettes Amount Used/How Often: 10-20 cigarettes daily Length of Time of Smoking/Using Tobacco: 41 Years Have You Smoked in the Last Year: Yes When Did the Patient Quit Smoking/Using Tobacco: 2017 Household Exposure Type: Cigarettes - Immunization History Most Recent Influenza Vaccination: 11/2016 Vaccination Up to Date: No Review of Systems All Other Systems Reviewed And Are Negative: Yes Constitutional: Positive: Negative Skin: Positive: Negative Eyes: Positive: Negative ENT: Positive: Negative Respiratory: Positive: Cough, Other - wheezing Cardiovascular: Positive: Negative Gastrointestinal: Positive: Negative Genitourinary: Positive: Negative Motor: Positive: Negative Neurovascular: Positive: Negative Musculoskeletal: Positive: Negative Neurological: Positive: Negative Psychological: Positive: Negative Physical Exam Triage Information Reviewed: Yes Appearance: Well-Appearing, No Pain Distress, Well-Nourished Vital Signs: Initial Vital Signs Temp 97.8 F 09/05/18 13:43 Pulse 108 09/05/18 13:43 Resp 16 09/05/18 13:43 BP 119/59 09/05/18 13:43 Pulse Ox 96 09/05/18 13:43 Vital Signs Reviewed: Yes Eyes: Positive: Conjunctiva Clear ENT: Positive: Hearing grossly normal. Negative: Nasal congestion, Nasal drainage, Trismus, Muffled voice, Hoarse voice Neck: Positive: Supple, Nontender, No Lymphadenopathy Respiratory: Positive: Lungs clear, Normal breath sounds, No respiratory distress, No accessory muscle use Cardiovascular: Positive: RRR, No Murmur Musculoskeletal: Positive: ROM Intact, No Edema Neurological: Positive: Alert Psychological Exam: Normal Skin Exam: Normal Respiratory Course/Dx - Course Course Of Treatment: patient declined neb treatment here stating she will give herself a neb when she gets home she state she has an appt with her program arranger soon - Differential Dx/Diagnosis Provider Diagnosis: COPD with acute exacerbation Discharge - Sign-Out/Discharge Documenting (check all that apply): Patient Departure All imaging exams completed and their final reports reviewed: No Studies - Discharge Plan Condition: Stable Disposition: HOME Prescriptions: Amoxicillin/Clavulanate TAB* [Augmentin TAB 875*] 875 mg PO BID #14 tab predniSONE [Deltasone 20 MG TAB] 40 mg PO DAILY #13 tab Patient Education Materials: Acute Bronchitis (ED) Referrals: Rayo Power DO [Primary Care Provider] - Additional Instructions: see your program arranger soon as planned recheck for new or worsening symptoms - Billing Disposition and Condition Condition: STABLE Disposition: Home
[2018-09-05] MEDS ORDERED: predniSONE TAB* 20 MG PO ONE (14:02)
== END 2018-09-05 14:09 | disposition home or self-care (01) ==
LOC: UCCORT 13:15
DX: J44.1 Chronic obstructive pulmonary disease with (acute) exacerbation (principal); Z85.828 Personal history of other malignant neoplasm of skin; Z87.891 Personal history of nicotine dependence
CPT/HCPCS: 99212; G0463; J7512

== ENCOUNTER 2019-04-07 07:01 | Emergency (ER) | payer OTHER ==
[2019-04-07 07:14] VITALS: BP 105/87
--- NOTE | 2019-04-07 07:47 | UC ---
Respiratory Complaint HPI - HPI Summary HPI Summary: 63 y/o female with a hx of COPD and Asthma 5 days hx of productive cough , with yellow / green sputum chest tightness, sob , no fever, + chills, fatigue - History of Current Complaint Chief Complaint: UCGeneralIllness Stated Complaint: CHEST CONGESTION ABDOMINAL PAIN Time Seen by Provider: 04/07/19 07:08 Hx Obtained From: Patient Hx Last Menstrual Period: n/a Onset/Duration: Gradual Onset, Lasting Days - 5, Still Present Timing: Constant Severity Initially: Moderate Severity Currently: Moderate Pain Intensity: 0 Pain Scale Used: 0-10 Numeric Character: Cough: Productive Aggravating Factors: Exertion, Deep Breaths Alleviating Factors: Nothing Associated Signs And Symptoms: Positive: Dyspnea, Chills, URI, Nasal Congestion. Negative: Fever, Pleuritic Chest Pain, Wheezing, Hemoptysis - Allergies/Home Medications Allergies/Adverse Reactions: Allergies Allergy/AdvReac Type Severity Reaction Status Date / Time citalopram [From Celexa] Allergy Severe Anaphylatic Verified 04/07/19 07:15 Shock Iodinated Contrast Media Allergy Severe Anaphylatic Verified 04/07/19 07:15 [Iodinated Contrast- Oral Shock and IV Dye] moxifloxacin [From Avelox] Allergy Severe Anaphylatic Verified 04/07/19 07:15 Shock ceftriaxone [From Rocephin] AdvReac Severe Abdominal Verified 04/07/19 07:15 Pain PMH/Surg Hx/FS Hx/Imm Hx Respiratory History: COPD, Asthma Other History Of: Negative For: HIV, Hepatitis B, Hepatitis C - Surgical History Surgical History: Yes Surgery Procedure, Year, and Place: skin cancer removed September 2012. x1. Skin cancer removed from face one week ago - Family History Known Family History: Positive: Respiratory Disease Negative: Cardiac Disease, Hypertension, Renal Disease - Social History Alcohol Use: None Substance Use Type: None Smoking Status (MU): Former Smoker Type: Cigarettes Amount Used/How Often: 10-20 cigarettes daily Length of Time of Smoking/Using Tobacco: 41 Years Have You Smoked in the Last Year: Yes When Did the Patient Quit Smoking/Using Tobacco: 2016 Household Exposure Type: Cigarettes - Immunization History Most Recent Influenza Vaccination: 11/2016 Vaccination Up to Date: No Review of Systems All Other Systems Reviewed And Are Negative: Yes Constitutional: Positive: Chills, Fatigue Skin: Positive: Negative Eyes: Positive: Negative ENT: Positive: Nasal Discharge Respiratory: Positive: Shortness Of Breath, Cough Cardiovascular: Positive: Negative Is Patient Immunocompromised?: No Physical Exam Triage Information Reviewed: Yes Appearance: Well-Appearing, No Pain Distress, Well-Nourished Vital Signs: Initial Vital Signs Temp 98.1 F 04/07/19 07:09 Pulse 86 04/07/19 07:09 Resp 18 04/07/19 07:09 BP 105/87 04/07/19 07:09 Pulse Ox 98 04/07/19 07:09 Vital Signs Reviewed: Yes Eye Exam: Normal Eyes: Positive: Conjunctiva Clear ENT: Positive: Normal ENT inspection, Hearing grossly normal, Pharynx normal, Nasal congestion Neck exam: Normal Neck: Positive: Supple, Nontender, No Lymphadenopathy Respiratory: Positive: Chest non-tender, Decreased breath sounds Cardiovascular: Positive: RRR Respiratory Course/Dx - Differential Dx/Diagnosis Provider Diagnosis: Bronchitis, COPD (chronic obstructive pulmonary disease) Discharge ED - Sign-Out/Discharge Documenting (check all that apply): Patient Departure All imaging exams completed and their final reports reviewed: No Studies - Discharge Plan Condition: Stable Disposition: HOME Prescriptions: DOXYcycline CAP(*) [DOXYcycline 100MG CAP(*)] 100 mg PO BID #20 cap predniSONE 20 mg TAB [Deltasone 20 MG TAB*] 40 mg PO DAILY #10 tab Patient Education Materials: Acute Bronchitis (ED), COPD (Chronic Obstructive Pulmonary Disease) (ED) Referrals: Rayo Power DO [Primary Care Provider] - 7 Days - Billing Disposition and Condition Condition: STABLE Disposition: Home
== END 2019-04-07 07:35 | disposition home or self-care (01) ==
LOC: UCCORT 07:01
DX: J44.9 Chronic obstructive pulmonary disease, unspecified (principal); Z88.8 Allergy status to other drugs, medicaments and biological substances; Z91.041 Radiographic dye allergy status; Z87.891 Personal history of nicotine dependence; J34.89 Other specified disorders of nose and nasal sinuses; Z88.1 Allergy status to other antibiotic agents
CPT/HCPCS: 99212; G0463